=== PATIENT | male | born 1950 | race Caucasian/White ===

== ENCOUNTER 2017-05-17 17:23 | Emergency (ER) | payer MEDICARE ==
[~2017-05-17] VITALS: Ht 180.3 cm; Wt 78.6 kg
[~2017-05-17 17:23] MED LIST: ACET1TAB39 PO; CARI350T PO
[2017-05-17 18:02] VITALS: BP 129/72
== END 2017-05-17 18:50 | disposition left against medical advice (07) ==
LOC: ED 18:44
DX: Z53.21 Procedure and treatment not carried out due to patient leaving prior to being seen by health care provider (principal)

== ENCOUNTER 2018-12-10 09:32 | Emergency (ER) | payer MEDICARE ==
[~2018-12-10] VITALS: Ht 180.3 cm; Wt 77.2 kg
[2018-12-10 09:43] VITALS: BP 123/67
== END 2018-12-10 10:40 | disposition home or self-care (01) ==
LOC: ED 10:34
DX: M25.561 Pain in right knee (principal); M25.562 Pain in left knee; G89.29 Other chronic pain; M51.36 Other intervertebral disc degeneration, lumbar region; Z76.0 Encounter for issue of repeat prescription; J44.9 Chronic obstructive pulmonary disease, unspecified; M19.90 Unspecified osteoarthritis, unspecified site; F17.200 Nicotine dependence, unspecified, uncomplicated; Z90.49 Acquired absence of other specified parts of digestive tract
CPT/HCPCS: 99283

== ENCOUNTER 2019-03-30 22:48 | Emergency (ER) | payer MEDICARE ==
[~2019-03-30] VITALS: Ht 180.3 cm; Wt 81.8 kg
[2019-03-30 22:54] VITALS: BP 146/84
[2019-03-30] MEDS ORDERED: DIPHENHYDRAMINE 25 MG CAPSULE ONE (23:17)
[2019-03-30] MEDS ORDERED: DIPHENHYDRAMINE 25 MG CAPSULE PO ONE (23:30)
== END 2019-03-31 00:24 | disposition home or self-care (01) ==
LOC: ED 03-31 00:18
DX: B86 Scabies (principal); J44.9 Chronic obstructive pulmonary disease, unspecified; M81.0 Age-related osteoporosis without current pathological fracture; Z72.89 Other problems related to lifestyle; Z59.0 Homelessness
CPT/HCPCS: 71046; 99283; Q0163

== ENCOUNTER 2019-10-16 14:08 | Emergency (ER) | payer MEDICARE, MEDICAID ==
[~2019-10-16] VITALS: Ht 180.3 cm; Wt 76.9 kg
[~2019-10-16 14:08] MED LIST changes: +Sulfameth./Trimethoprim Ds PO
[2019-10-16 14:11] VITALS: BP 120/72
[2019-10-16] MEDS ORDERED: SULFAMETH./TRIMETHOPRIM DS 800MG/160MG TABLET ONE (14:32)
--- NOTE | 2019-10-16 14:43 | NUR ---
PT PROVIDED WITH INFORMATION ON CARE CHEST. ALL QUESTIONS ANSWERED. DENIES ANY FURTHER NEEDS OR CONCERNS. DISCHARGED WITHOUT ISSUE.
[2019-10-16] MEDS ORDERED: SULFAMETH./TRIMETHOPRIM DS 800MG/160MG TABLET PO ONE (15:00)
== END 2019-10-16 14:45 | disposition home or self-care (01) ==
LOC: ED 14:35
DX: L03.012 Cellulitis of left finger (principal); J44.9 Chronic obstructive pulmonary disease, unspecified; F17.200 Nicotine dependence, unspecified, uncomplicated
CPT/HCPCS: 99283

== ENCOUNTER 2019-10-20 13:36 | Emergency (ER) | payer MEDICARE, MEDICAID ==
[~2019-10-20] VITALS: Ht 180.3 cm; Wt 74.6 kg
[2019-10-20 13:41] VITALS: BP 120/73
[2019-10-20] MEDS ORDERED: SULFAMETH./TRIMETHOPRIM DS 800MG/160MG TABLET PO ONE (14:30)
== END 2019-10-20 15:22 | disposition home or self-care (01) ==
LOC: ED 15:15
DX: L03.012 Cellulitis of left finger (principal); J44.9 Chronic obstructive pulmonary disease, unspecified; F17.200 Nicotine dependence, unspecified, uncomplicated; Z90.49 Acquired absence of other specified parts of digestive tract
CPT/HCPCS: 99283

== ENCOUNTER 2019-10-21 20:32 | Emergency (ER) | payer MEDICARE, MEDICAID ==
[~2019-10-21] VITALS: Ht 180.3 cm; Wt 74.4 kg
[2019-10-21 20:36] VITALS: BP 128/63
[2019-10-21 21:22] LABS: BASOPHILS # (AUTO) 0.07 x10^3/uL (0-0.1); BASOPHILS % (AUTO) 1 % (0-1); EOSINOPHILS # (AUTO) 0.49 x10^3/uL (0-0.4); EOSINOPHILS % (AUTO) 6 % (1-7); LYMPHOCYTES # (AUTO) 2.12 x10^3/uL (1-3.4); LYMPHOCYTES % (AUTO) 24 % (22-44); MD NO; MEAN CORPUSCULAR HEMOGLOBIN 31.1 pg (27.5-34.5); MEAN CORPUSCULAR HGB CONC 33.1 g/dL (33.2-36.2); MEAN CORPUSCULAR VOLUME 93.9 fL (81-97); MONOCYTES # (AUTO) 0.63 x10^3/uL (0.2-0.8); MONOCYTES % (AUTO) 7 % (2-9); NEUTROPHILS # (AUTO) 5.59 x10^3/uL (1.8-6.8); NEUTROPHILS % (AUTO) 63 % (42-75); PLATELET COUNT 243 x10^3/uL (130-400); RED BLOOD COUNT 4.44 x10^6/uL (4.38-5.82); RED CELL DISTRIBUTION WIDTH 14.9 % (9.4-14.8)
[2019-10-21 21:30] LABS: ALBUMIN 3.3 g/dL (3.4-5.0); ANION GAP 4 mmol/L (5-15); CALCIUM 9.1 mg/dL (8.5-10.1); CHLORIDE 107 mmol/L (98-107); CREATININE 0.88 mg/dL (0.7-1.3)
[2019-10-21] MEDS ORDERED: CEPHALEXIN 500 MG CAPSULE PO ONE (22:00)
== END 2019-10-21 22:31 | disposition home or self-care (01) ==
LOC: ED 21:53
DX: L03.012 Cellulitis of left finger (principal); J44.9 Chronic obstructive pulmonary disease, unspecified; Z90.49 Acquired absence of other specified parts of digestive tract
CPT/HCPCS: 36415; 80048; 82040; 85025; 99284

== ENCOUNTER 2019-10-29 22:29 | Emergency (ER) | payer MEDICARE, MEDICAID ==
[~2019-10-29] VITALS: Ht 180.3 cm; Wt 76.2 kg
[2019-10-29 22:34] VITALS: BP 118/79
[2019-10-29 23:29] LABS: BASOPHILS # (AUTO) 0.05 x10^3/uL (0-0.1); BASOPHILS % (AUTO) 1 % (0-1); EOSINOPHILS # (AUTO) 0.22 x10^3/uL (0-0.4); EOSINOPHILS % (AUTO) 3 % (1-7); LYMPHOCYTES # (AUTO) 1.98 x10^3/uL (1-3.4); LYMPHOCYTES % (AUTO) 24 % (22-44); MD NO; MEAN CORPUSCULAR HGB CONC 32.9 g/dL (33.2-36.2); MEAN CORPUSCULAR VOLUME 94.3 fL (81-97); MONOCYTES # (AUTO) 0.48 x10^3/uL (0.2-0.8); MONOCYTES % (AUTO) 6 % (2-9); NEUTROPHILS # (AUTO) 5.64 x10^3/uL (1.8-6.8); NEUTROPHILS % (AUTO) 67 % (42-75); PLATELET COUNT 276 x10^3/uL (130-400); RED BLOOD COUNT 4.41 x10^6/uL (4.38-5.82); RED CELL DISTRIBUTION WIDTH 14.9 % (9.4-14.8)
[2019-10-29 23:37] LABS: ALBUMIN 3.4 g/dL (3.4-5.0); ANION GAP 3 mmol/L (5-15); CALCIUM 8.4 mg/dL (8.5-10.1); CHLORIDE 105 mmol/L (98-107); CREATININE 0.99 mg/dL (0.7-1.3)
[2019-10-29 23:41] LABS: TROPONIN I < 0.015 ng/mL (0.000-0.045)
--- NOTE | 2019-10-30 01:05 | NUR ---
RELIEF RN: CALLED CT, PT READY FOR TRANSPORT. PT ALSO REQUESTING DINNER, MADE PT AWARE OF PENDING TESTS.
[2019-10-30] MEDS ORDERED: OMNIPAQUE 350 MG/ML, 75ML BOTTLE ONE (01:23)
[2019-10-30] MEDS ORDERED: HYDROcodone/APAP 5/325 TABLET ONE (01:37)
[2019-10-30] MEDS ORDERED: HYDROcodone/APAP 5/325 TABLET PO ONE (02:00)
== END 2019-10-30 03:37 | disposition home or self-care (01) ==
LOC: ED 23:09
DX: M54.6 Pain in thoracic spine (principal); L03.313 Cellulitis of chest wall; R06.02 Shortness of breath; J44.9 Chronic obstructive pulmonary disease, unspecified; R07.9 Chest pain, unspecified; R94.31 Abnormal electrocardiogram [ECG] [EKG]; Z90.49 Acquired absence of other specified parts of digestive tract; Z95.0 Presence of cardiac pacemaker
CPT/HCPCS: 36415; 71046; 71275; 80048; 82040; 83880; 84484; 85025; 85379; 93005; 99285; Q9967

== ENCOUNTER 2019-11-09 18:48 | Emergency (ER) | payer MEDICARE, MEDICAID ==
[~2019-11-09] VITALS: Ht 180.3 cm; Wt 77.6 kg
--- NOTE | 2019-11-09 19:05 | NUR ---
TASK RN: PT AMBULATED BACK TO ROOM WITH A SMOOTH AND STEADY GAIT, CHANGED INTO GOWN, RESTING IN GURNEY. FIRST CONTACT WITH PT: PT REPORTS SOB X2DAYS, BREATHING IS MILDLY LABORED WITH ACTIVITY, EASES WITH RESTING. PT DENIES PASSING OUT, LEG SWELLING, CONSTANT SOB, DIZZINESS. PT STATES THAT HIS "PACER ALSO FEELS LIKE ITS STICKING OUT MORE." DENIES ANY PALPATIONS, RACING HEART FEELING OR CP. PT APPEARS COMFORTABLE IN [place], BREATHING UNLABORED, CLEAR/DIMISHED LUNG SOUNDS. PT PLACED ON SPO2/BP/ECG MONITORING. NSR ON MONITOR IN THE 80S-90S.
--- NOTE | 2019-11-09 19:08 | NUR ---
TASK RN: LALO ELLER AT BS FOR EVAL AND POC
[2019-11-09 19:32] LABS: BASOPHILS # (AUTO) 0.07 x10^3/uL (0-0.1); BASOPHILS % (AUTO) 1 % (0-1); EOSINOPHILS % (AUTO) 3 % (1-7); LYMPHOCYTES # (AUTO) 2.09 x10^3/uL (1-3.4); LYMPHOCYTES % (AUTO) 31 % (22-44); MD NO; MEAN CORPUSCULAR HEMOGLOBIN 31.1 pg (27.5-34.5); MEAN CORPUSCULAR HGB CONC 32.9 g/dL (33.2-36.2); MEAN CORPUSCULAR VOLUME 94.4 fL (81-97); MEAN PLATELET VOLUME 7.9 fL (7.4-10.4); MONOCYTES % (AUTO) 9 % (2-9); NEUTROPHILS % (AUTO) 56 % (42-75); PLATELET COUNT 212 x10^3/uL (130-400); RED CELL DISTRIBUTION WIDTH 15.2 % (9.4-14.8)
[2019-11-09 19:34] LABS: ALANINE AMINOTRANSFERASE 22 U/L (12-78); ALBUMIN 3.3 g/dL (3.4-5.0); ANION GAP 6 mmol/L (5-15); CALCIUM 8.2 mg/dL (8.5-10.1); CHLORIDE 110 mmol/L (98-107); CREATININE 1.06 mg/dL (0.7-1.3)
[2019-11-09 19:39] LABS: ALKALINE PHOSPHATASE 134 U/L (45-117); BILIRUBIN,TOTAL 0.2 mg/dL (0.2-1.0); TOTAL PROTEIN 7.1 g/dL (6.4-8.2); TROPONIN I < 0.015 ng/mL (0.000-0.045)
[2019-11-09 20:02] VITALS: BP 105/61
--- NOTE | 2019-11-09 20:03 | NUR ---
RADIOLOGY CALLED FOR PENDING CXR FRM 1909. PER PT HER REPORTS HE WAS TAKEN A WHILE AGO FOR IMAGES.
== END 2019-11-09 20:35 | disposition home or self-care (01) ==
LOC: ED 20:25
DX: R06.00 Dyspnea, unspecified (principal); R07.9 Chest pain, unspecified; J44.9 Chronic obstructive pulmonary disease, unspecified; Z90.49 Acquired absence of other specified parts of digestive tract; Z95.0 Presence of cardiac pacemaker
CPT/HCPCS: 36415; 71046; 80053; 83880; 84484; 85025; 93005; 99285

== ENCOUNTER 2019-11-12 19:10 | Emergency (ER) | payer MEDICARE, MEDICAID ==
[~2019-11-12] VITALS: Ht 180.3 cm; Wt 78.2 kg
[2019-11-12 19:18] VITALS: BP 128/76
--- NOTE | 2019-11-12 20:23 | NUR ---
STICH-LIKE FOREIGN BODY EMERGING FROM PACEMAKER SUTURE AREA. PACEMAKER INSERTED ABOUT 2 MONTHS AGO.
--- NOTE | 2019-11-12 20:25 | NUR ---
SKIN WNL, RESP EVEN & UNLABORED. PT ABLE TO SPEAK IN COMPLETE SENTENCES W/OUT DIFFICULTY. NO COUGH NOTED.
== END 2019-11-12 20:45 | disposition home or self-care (01) ==
LOC: ED 20:39
DX: R06.00 Dyspnea, unspecified (principal); R94.31 Abnormal electrocardiogram [ECG] [EKG]; J44.9 Chronic obstructive pulmonary disease, unspecified; M19.90 Unspecified osteoarthritis, unspecified site; Z90.49 Acquired absence of other specified parts of digestive tract; Z95.0 Presence of cardiac pacemaker; F17.200 Nicotine dependence, unspecified, uncomplicated
CPT/HCPCS: 93005; 99283

== ENCOUNTER 2019-12-05 17:35 | Emergency (ER) | payer MEDICARE, MEDICAID ==
[~2019-12-05] VITALS: Ht 180.3 cm; Wt 75.0 kg
[2019-12-05 17:42] VITALS: BP 128/70
[2019-12-05] MEDS ORDERED: KETOROLAC 30 MG/1 ML ONE (17:49)
--- NOTE | 2019-12-05 17:53 | NUR ---
TORADOL GIVEN FOR PAIN TO BILATERAL KNEES REPORTED BY PT TO BE 10/10. PT SLEEPING INTERMITTENTLY, AROUSABLE TO VOICE. URINAL AT BS PER PT REQUEST, CALL LIGHT WITHIN REACH. PT TO XRAY
[2019-12-05] MEDS ORDERED: KETOROLAC 30 MG/1 ML IM ONE ×2 (18:00)
--- NOTE | 2019-12-05 18:00 | NUR ---
PT TO XRAY.
--- NOTE | 2019-12-05 18:22 | NUR ---
XRAYS RESULTED, PT FOR RECHECK.
--- NOTE | 2019-12-05 18:29 | NUR ---
PT AWOKE FROM SLEEP AGAIN. PT PROVIDED CANE AND AMBULATED IN FIELD AND TO BR. PT ABLE TO AMBULATE, USES CANE SOMETIMES BUT APPEARS TO PREFER WALKING WITHOUT ANY ASSISTIVE DEVICE.
--- NOTE | 2019-12-05 18:53 | NUR ---
REPORT TO PERCY, TRANSFER OF CARE AT THIS TIME.
--- NOTE | 2019-12-05 19:12 | NUR ---
PATIENT RESTING COMFORTABLE IN ROOM, CANE AT BEDSIDE. NAD, AWAITING FOR DISPO
== END 2019-12-05 19:59 | disposition home or self-care (01) ==
LOC: ED 19:32
DX: M25.562 Pain in left knee (principal); M25.561 Pain in right knee; J44.9 Chronic obstructive pulmonary disease, unspecified; Z95.0 Presence of cardiac pacemaker; Z90.49 Acquired absence of other specified parts of digestive tract
CPT/HCPCS: 73564; 96372; 99283; J1885

== ENCOUNTER 2019-12-06 17:41 | Inpatient (IN) | payer MEDICARE, MEDICAID ==
[~2019-12-06] VITALS: Ht 172.7 cm; Wt 77.1 kg
[2019-12-06] MEDS ORDERED: ACETAMINOPHEN 500 MG TABLET ONE (17:58)
[2019-12-06] MEDS ORDERED: SODIUM CHLORIDE 0.9% 1,000 ML IV ONE (18:12)
[2019-12-06] MEDS ORDERED: ACETAMINOPHEN 500 MG TABLET PO ONE (18:30)
[2019-12-06] MEDS ORDERED: CEFTRIAXONE PMX 1GM/50ML 50 ML IVPB ONE (18:30)
[2019-12-06] MEDS ORDERED: AZITHROMYCIN 500 MG in SODIUM CHLORIDE 0.9% 250 ML IV ONE (18:30)
--- NOTE | 2019-12-06 18:33 | NUR ---
PT. ARRIVES BY [facility] WITH C/O AMS. PT. IS A & O X 4 WITH A GCS OF 15. PT. IS INCONTINENT OF STOOL AND HAS SCABIES THROUGHOUT HIS ENTIRE BODY. PT. HAS MULTIPLE BRUISES HEAD TO TOE, VARIED STAGES OF HEALING. REPORTED THAT PT. IS UNSTEADY ON HIS FEET. PT. IS A POOR HISTORIAN. REPORTS TAKING ARTHRITIS MEDICATION. HE DOES HAVE A PACEMAKER PRESENT ON HIS LEFT CHEST. 12 LEAD EKG WAS DONE. IV ACCESS WAS ESTABLISHED IN THE FIELD AND IS PATENT. PT. WAS PLACED ON THE CARDIOPULMONARY MONITOR. SKIN CARE WAS GIVEN. FECES WAS REMOVED FROM THE PT.'S BODY NAVEL TO TOES. PT. REPORTS A COUGH AND IS FEBRILE. LUNGS ARE CTA. CHEST RISE AND FALL IS SYMMETRICAL WITHOUT JVD NOTED. HIS NECK IS MIDLINE. RESPIRATIONS ARE EUPNEIC HOWEVER THE PT. DOES REQUIRE O2 AT 2 LITERS PER NASAL CANNULA TO MAINTAIN HIS SPO2 ABOVE 94%. PT. STATES HE SMOKES A PACK OF CIGARETTES PER DAY. PT. LOWER EXTREMITIES ARE SWOLLEN THE RIGHT GREATER THAN THE LEFT AND THE PT. REPORTS PAIN WITH MOVEMENT HOWEVER HE IS ABLE TO MOVE ALL EXTREMITIES. PT.'S CAP REFILL IS BRISK AND HIS PULSES ARE +2 THROUGHOUT. PT.'S HOB IS ELEVATED GREATER THAN 30 DEGREES AND HIS SIDERAILS ARE UP X 2 WITH THE CALL LIGHT IN PLACE. PT. WAS MEDICATED FOR FEVER ORDERED.
[2019-12-06 18:47] LABS: MEAN CORPUSCULAR HEMOGLOBIN 30.6 pg (27.5-34.5); MEAN CORPUSCULAR HGB CONC 32.5 g/dL (33.2-36.2); MEAN PLATELET VOLUME 8.4 fL (7.4-10.4); PLATELET COUNT 139 x10^3/uL (130-400); RED BLOOD COUNT 4.09 x10^6/uL (4.38-5.82); RED CELL DISTRIBUTION WIDTH 14.5 % (9.4-14.8)
[2019-12-06 18:53] LABS: ALBUMIN 2.9 g/dL (3.4-5.0); ANION GAP 8 mmol/L (5-15); CALCIUM 8.6 mg/dL (8.5-10.1); CHLORIDE 105 mmol/L (98-107); CREATININE 1.02 mg/dL (0.7-1.3)
--- NOTE | 2019-12-06 18:59 | NUR ---
REPORT GIVEN. PT. REMAINS MONITORED. PT. WAS REMINDED TO KEEP THE OXYGEN IN HIS NOSE.
[2019-12-06] MEDS ORDERED: CEFTRIAXONE PMX 1GM/50ML 50 ML ONE (19:07)
[2019-12-06 19:13] LABS: MD YES
[2019-12-06 19:15] LABS: <RBC MORPHOLOGY> NORMAL; BAND#(MANUAL) 0.99 x10^3/uL; BANDS%(MANUAL) 14 % (0-7); MONOS#(MANUAL) 0.14 x10^3/uL (0.3-2.7); MONOS% (MANUAL) 2 % (2-9); SEG#(MANUAL) 5.96 x10^3/uL (1.8-6.8); SEGS% (MANUAL) 84 % (42-75)
[2019-12-06 19:16] LABS: <PLATELET ESTIMATE> ADEQUATE; <PLT MORPHOLOGY> NORMAL PLT MORPH
--- NOTE | 2019-12-06 19:30 | NUR ---
Pt AAOx3 w/ 18ga IV RAC w/ good flush. Pt poor historian, unable to obtain medical history.
[2019-12-06] MEDS ORDERED: PERMETHRIN CRM 5%, 60GM TP SCH (21:00)
[2019-12-06] MEDS ORDERED: ONDANSETRON ODT 4 MG PO PRN (21:00)
[2019-12-06] MEDS ORDERED: BISACODYL 10 MG SUPP PR PRN (21:00)
[2019-12-06] MEDS ORDERED: DOXYCYCLINE 100 MG in DEXTROSE 5% 250 ML IV SCH (21:00)
[2019-12-06] MEDS ORDERED: AZITHROMYCIN 500 MG in SODIUM CHLORIDE 0.9% 250 ML IV SCH (21:00)
[2019-12-06 21:27] LABS: MICROSCOPIC INDICATED
[2019-12-06] MEDS: SODIUM CHLORIDE 0.9% 1,000 ML IV SCH (22:18)
[2019-12-06] MEDS: ACETAMINOPHEN 325 MG TABLET PO PRN (22:19)
[2019-12-06] MEDS: HEPARIN 5,000 UNITS/ML, 1ML SQ SCH (22:19)
[2019-12-06 22:37] VITALS: BP 105/66
[2019-12-07 01:59] VITALS: BP 91/61
[2019-12-07] MEDS: HEPARIN 5,000 UNITS/ML, 1ML SQ SCH ×3 (05:00→21:08)
[2019-12-07 06:20] LABS: ANION GAP 6 mmol/L (5-15); CALCIUM 8.2 mg/dL (8.5-10.1); CHLORIDE 109 mmol/L (98-107); CREATININE 0.79 mg/dL (0.7-1.3)
[2019-12-07 07:08] VITALS: BP 91/63
[2019-12-07 07:23] LABS: MD YES; MEAN CORPUSCULAR HGB CONC 32.9 g/dL (33.2-36.2); MEAN PLATELET VOLUME 8.8 fL (7.4-10.4); PLATELET COUNT 88 x10^3/uL (130-400); RED BLOOD COUNT 3.82 x10^6/uL (4.38-5.82); RED CELL DISTRIBUTION WIDTH 14.4 % (9.4-14.8)
[2019-12-07 07:25] LABS: BAND#(MANUAL) 0.56 x10^3/uL; BANDS%(MANUAL) 14 % (0-7); LYMPH#(MANUAL) 0.24 x10^3/uL (1-3.4); LYMPHS% (MANUAL) 6 % (22-44); METAMYELOCYTES# (MANUAL) 0.16 x10^3/uL (0-0); METAMYELOCYTES% (MANUAL) 4 % (0-1); MONOS#(MANUAL) 0.28 x10^3/uL (0.3-2.7); MONOS% (MANUAL) 7 % (2-9); SEG#(MANUAL) 2.76 x10^3/uL (1.8-6.8); SEGS% (MANUAL) 69 % (42-75)
[2019-12-07 07:26] LABS: <PLATELET ESTIMATE> DECREASED; <PLT MORPHOLOGY> NORMAL PLT MORPH; <RBC MORPHOLOGY> NORMAL
[2019-12-07] MEDS ORDERED: VANCOMYCIN PER PHARMACY MC PRN (07:30)
[2019-12-07] MEDS: SODIUM CHLORIDE 0.9% 1,000 ML IV SCH (08:21)
[2019-12-07] MEDS: ACETAMINOPHEN 325 MG TABLET PO PRN ×3 (08:22→19:34)
[2019-12-07] MEDS: SENNA/DOCUSATE TABLET PO SCH (08:22)
[2019-12-07 08:28] VITALS: BP 98/63
[2019-12-07] MEDS ORDERED: PHARMACOKINETIC CONSULTATION MC ONE (08:30)
[2019-12-07] MEDS ORDERED: PHARMACOKINETIC MONITORING MC PRN (08:30)
[2019-12-07] MEDS ORDERED: VANCOMYCIN 1,800 MG in SODIUM CHLORIDE 0.9% 250 ML IV ONE (08:45)
[2019-12-07 13:50] VITALS: BP 95/55
[2019-12-07 18:35] VITALS: BP 95/60
[2019-12-07] MEDS ORDERED: CEFTRIAXONE PMX 1GM/50ML 50 ML IV SCH (19:00)
[2019-12-08] VITALS (9 sets, daily range): BP systolic 81–102; BP diastolic 49–65
[2019-12-08] MEDS: ACETAMINOPHEN 325 MG TABLET PO PRN (00:32)
[2019-12-08] MEDS: ALBUTEROL-IPRATROPIUM MDI INH INH PRN (01:13)
[2019-12-08] MEDS: SODIUM CHLORIDE 0.9% 1,000 ML IV SCH ×2 (01:14→13:00)
[2019-12-08] MEDS: APAP/CODEINE 300/60MG TABLET PO PRN ×2 (01:57→17:38)
[2019-12-08] MEDS: VANCOMYCIN 1,500 MG in SODIUM CHLORIDE 0.9% 250 ML IV SCH ×2 (04:01→22:05)
[2019-12-08] MEDS: HEPARIN 5,000 UNITS/ML, 1ML SQ SCH ×3 (04:02→22:06)
[2019-12-08 06:52] LABS: MEAN CORPUSCULAR HEMOGLOBIN 30.9 pg (27.5-34.5); MEAN CORPUSCULAR HGB CONC 32.1 g/dL (33.2-36.2); MEAN PLATELET VOLUME 9.3 fL (7.4-10.4); PLATELET COUNT 76 x10^3/uL (130-400); RED BLOOD COUNT 3.85 x10^6/uL (4.38-5.82); RED CELL DISTRIBUTION WIDTH 14.9 % (9.4-14.8)
[2019-12-08 07:05] LABS: ALANINE AMINOTRANSFERASE 32 U/L (12-78); ALBUMIN 1.7 g/dL (3.4-5.0); ANION GAP 5 mmol/L (5-15); CALCIUM 8.2 mg/dL (8.5-10.1); CHLORIDE 111 mmol/L (98-107)
[2019-12-08 07:08] LABS: ALKALINE PHOSPHATASE 100 U/L (45-117); BILIRUBIN,TOTAL 0.4 mg/dL (0.2-1.0); CREATININE 0.83 mg/dL (0.7-1.3); TOTAL PROTEIN 4.7 g/dL (6.4-8.2)
[2019-12-08 07:32] LABS: MD YES
[2019-12-08 07:37] LABS: LYMPH#(MANUAL) 0.19 x10^3/uL (1-3.4); LYMPHS% (MANUAL) 4 % (22-44); MONOS#(MANUAL) 0.29 x10^3/uL (0.3-2.7); MONOS% (MANUAL) 6 % (2-9)
[2019-12-08 07:39] LABS: BAND#(MANUAL) 1.06 x10^3/uL; BANDS%(MANUAL) 22 % (0-7); SEG#(MANUAL) 3.26 x10^3/uL (1.8-6.8); SEGS% (MANUAL) 68 % (42-75)
[2019-12-08 07:40] LABS: <RBC MORPHOLOGY> NORMAL
[2019-12-08 07:41] LABS: <PLATELET ESTIMATE> DECREASED; LARGE PLATELETS 1+
[2019-12-08] MEDS: SENNA/DOCUSATE TABLET PO SCH (09:00)
[2019-12-08] MEDS ORDERED: CEFTRIAXONE PMX 2GM/50ML 50 ML IV SCH (15:30)
[2019-12-09 01:12] VITALS: BP 90/59
[2019-12-09] MEDS: ALBUTEROL-IPRATROPIUM MDI INH INH PRN ×2 (01:50→09:01)
[2019-12-09] MEDS: APAP/CODEINE 300/60MG TABLET PO PRN ×3 (02:07→21:59)
[2019-12-09 05:48] LABS: MEAN CORPUSCULAR HEMOGLOBIN 30.8 pg (27.5-34.5); MEAN CORPUSCULAR HGB CONC 32.4 g/dL (33.2-36.2); MEAN PLATELET VOLUME 10.2 fL (7.4-10.4); PLATELET COUNT 75 x10^3/uL (130-400); RED BLOOD COUNT 3.92 x10^6/uL (4.38-5.82); RED CELL DISTRIBUTION WIDTH 14.8 % (9.4-14.8)
[2019-12-09 05:50] LABS: ANION GAP 4 mmol/L (5-15); CALCIUM 8.3 mg/dL (8.5-10.1); CHLORIDE 110 mmol/L (98-107)
[2019-12-09] MEDS: HEPARIN 5,000 UNITS/ML, 1ML SQ SCH (05:51)
[2019-12-09 05:52] LABS: CREATININE 0.78 mg/dL (0.7-1.3)
[2019-12-09 05:59] LABS: MD YES
[2019-12-09 06:02] LABS: <PLATELET ESTIMATE> DECREASED; <PLT MORPHOLOGY> NORMAL PLT MORPH; <RBC MORPHOLOGY> NORMAL; BANDS%(MANUAL) 3 % (0-7); LYMPH#(MANUAL) 0.59 x10^3/uL (1-3.4); LYMPHS% (MANUAL) 9 % (22-44); MONOS% (MANUAL) 6 % (2-9); SEG#(MANUAL) 5.41 x10^3/uL (1.8-6.8); SEGS% (MANUAL) 82 % (42-75)
[2019-12-09] MEDS ORDERED: CEFTAROLINE 600 MG in SODIUM CHLORIDE 0.9% 100 ML IV SCH (07:30)
[2019-12-09] MEDS ORDERED: POTASSIUM PHOSPHATE 44 MEQ in SODIUM CHLORIDE 0.9% 500 ML IV ONE (07:30)
[2019-12-09] MEDS ORDERED: DAPTOMYCIN 500 MG in SODIUM CHLORIDE 0.9% 100 ML IVPB SCH (07:30)
[2019-12-09 08:13] LABS: CREATINE KINASE, TOTAL 59 U/L (39-308)
[2019-12-09 08:37] LABS: C-REACTIVE PROTEIN, QUANT > 19.00 mg/dL (0.02-0.49)
[2019-12-09 08:40] VITALS: BP 114/75
[2019-12-09] MEDS: SENNA/DOCUSATE TABLET PO SCH (08:57)
[2019-12-09 09:17] LABS: HCT (SEDRATE) 37.2 % (39.2-51.8)
[2019-12-09] MEDS: FUROSEMIDE 20 MG/2 ML IV SCH (10:19)
[2019-12-09] MEDS: methylPREDNISolone SOD SUCC 40 MG/ML IV SCH ×2 (12:01→20:15)
[2019-12-09 14:45] VITALS: BP 101/65
[2019-12-09] MEDS: CEFTAROLINE 600 MG in SODIUM CHLORIDE 0.9% 100 ML IV SCH (17:12)
[2019-12-09 19:33] VITALS: BP 105/64
[2019-12-10 00:53] VITALS: BP 114/68
[2019-12-10] MEDS: CEFTAROLINE 600 MG in SODIUM CHLORIDE 0.9% 100 ML IV SCH ×3 (00:53→17:05)
[2019-12-10] MEDS: methylPREDNISolone SOD SUCC 40 MG/ML IV SCH ×3 (04:15→21:10)
[2019-12-10 05:50] LABS: MEAN CORPUSCULAR HEMOGLOBIN 30.5 pg (27.5-34.5); MEAN CORPUSCULAR HGB CONC 32.1 g/dL (33.2-36.2); MEAN PLATELET VOLUME 9.5 fL (7.4-10.4); PLATELET COUNT 77 x10^3/uL (130-400); RED CELL DISTRIBUTION WIDTH 15.3 % (9.4-14.8)
[2019-12-10 05:53] LABS: ANION GAP 7 mmol/L (5-15); CALCIUM 7.5 mg/dL (8.5-10.1); CHLORIDE 110 mmol/L (98-107)
[2019-12-10 05:54] LABS: CREATININE 0.73 mg/dL (0.7-1.3)
[2019-12-10 06:07] LABS: MD YES
[2019-12-10 06:09] LABS: BAND#(MANUAL) 0.06 x10^3/uL; BANDS%(MANUAL) 1 % (0-7); LYMPH#(MANUAL) 1.03 x10^3/uL (1-3.4); LYMPHS% (MANUAL) 18 % (22-44); MONOS#(MANUAL) 0.34 x10^3/uL (0.3-2.7); MONOS% (MANUAL) 6 % (2-9); SEG#(MANUAL) 4.28 x10^3/uL (1.8-6.8); SEGS% (MANUAL) 75 % (42-75)
[2019-12-10 06:11] LABS: <PLATELET ESTIMATE> DECREASED; <PLT MORPHOLOGY> NORMAL PLT MORPH; <RBC MORPHOLOGY> NORMAL
[2019-12-10 07:21] VITALS: BP 127/79
[2019-12-10] MEDS: SENNA/DOCUSATE TABLET PO SCH (09:00)
[2019-12-10] MEDS: FUROSEMIDE 20 MG/2 ML IV SCH (09:08)
[2019-12-10] MEDS: INSULIN LISPRO 100 UNITS/ML, PEN SQ-INSULIN SCH ×4 (09:09→21:11)
[2019-12-10] MEDS: APAP/CODEINE 300/60MG TABLET PO PRN (10:58)
[2019-12-10 14:50] VITALS: BP 94/61
[2019-12-10 20:59] VITALS: BP 96/61
[2019-12-11 00:45] VITALS: BP 103/66
[2019-12-11 01:37] VITALS: BP 123/78
[2019-12-11] MEDS: CEFTAROLINE 600 MG in SODIUM CHLORIDE 0.9% 100 ML IV SCH ×3 (02:05→19:52)
[2019-12-11] MEDS: methylPREDNISolone SOD SUCC 40 MG/ML IV SCH (05:16)
[2019-12-11 06:43] LABS: MEAN CORPUSCULAR HEMOGLOBIN 30.8 pg (27.5-34.5); MEAN CORPUSCULAR HGB CONC 32.8 g/dL (33.2-36.2); MEAN PLATELET VOLUME 9.6 fL (7.4-10.4); PLATELET COUNT 107 x10^3/uL (130-400); RED BLOOD COUNT 4.07 x10^6/uL (4.38-5.82)
[2019-12-11 07:01] LABS: ANION GAP 3 mmol/L (5-15); CALCIUM 7.8 mg/dL (8.5-10.1); CHLORIDE 112 mmol/L (98-107); CREATININE 0.61 mg/dL (0.7-1.3)
[2019-12-11 07:30] LABS: BASOPHILS # (AUTO) 0.01 x10^3/uL (0-0.1); BASOPHILS % (AUTO) 0 % (0-1); EOSINOPHILS # (AUTO) 0.01 x10^3/uL (0-0.4); EOSINOPHILS % (AUTO) 0 % (1-7); LYMPHOCYTES # (AUTO) 0.67 x10^3/uL (1-3.4); LYMPHOCYTES % (AUTO) 12 % (22-44); MD SCAN; MONOCYTES # (AUTO) 0.17 x10^3/uL (0.2-0.8); MONOCYTES % (AUTO) 3 % (2-9); NEUTROPHILS # (AUTO) 4.78 x10^3/uL (1.8-6.8); NEUTROPHILS % (AUTO) 85 % (42-75)
[2019-12-11 08:23] VITALS: BP 121/77
[2019-12-11] MEDS: INSULIN LISPRO 100 UNITS/ML, PEN SQ-INSULIN SCH ×4 (08:44→22:06)
[2019-12-11] MEDS: GUAIFENESIN ER 600 MG TABLET PO SCH ×2 (10:28→22:06)
[2019-12-11] MEDS: DAPTOMYCIN 480 MG in SODIUM CHLORIDE 0.9% 100 ML IVPB SCH (10:29)
[2019-12-11] MEDS: SENNA/DOCUSATE TABLET PO SCH (10:29)
[2019-12-11 12:01] VITALS: BP 113/67
[2019-12-11] MEDS ORDERED: MIDAZOLAM 1 MG/ML, 5ML ONE (14:50)
[2019-12-11] MEDS ORDERED: FENTANYL PF 100 MCG/2ML ONE (14:50)
[2019-12-11] MEDS ORDERED: LIDOCAINE 2%, 20ML ONE (14:51)
[2019-12-11] MEDS ORDERED: VANCOMYCIN PMX 1GM/200ML 200 ML ONE (14:51)
[2019-12-11] MEDS ORDERED: VANCOMYCIN 500 MG ONE (14:51)
[2019-12-11 16:35] VITALS: BP 126/70
[2019-12-11 19:39] VITALS: BP 112/63
[2019-12-11] MEDS: APAP/CODEINE 300/60MG TABLET PO PRN (22:05)
[2019-12-12 01:28] VITALS: BP 116/71
[2019-12-12] MEDS: CEFTAROLINE 600 MG in SODIUM CHLORIDE 0.9% 100 ML IV SCH ×3 (03:32→23:44)
[2019-12-12 06:13] LABS: CHLORIDE 114 mmol/L (98-107)
[2019-12-12 06:27] LABS: ANION GAP 5 mmol/L (5-15); CREATININE 0.63 mg/dL (0.7-1.3)
[2019-12-12] MEDS: INSULIN LISPRO 100 UNITS/ML, PEN SQ-INSULIN SCH ×4 (07:34→21:00)
[2019-12-12] MEDS: SENNA/DOCUSATE TABLET PO SCH (08:22)
[2019-12-12] MEDS: GUAIFENESIN ER 600 MG TABLET PO SCH ×2 (08:22→23:44)
[2019-12-12 08:33] VITALS: BP 137/62
[2019-12-12] MEDS ORDERED: methylPREDNISolone SOD SUCC 40 MG/ML IV SCH (09:00)
[2019-12-12] MEDS: DAPTOMYCIN 480 MG in SODIUM CHLORIDE 0.9% 100 ML IVPB SCH (11:00)
[2019-12-12 12:47] VITALS: BP 104/61
[2019-12-12 19:36] VITALS: BP 139/78
[2019-12-12] MEDS: APAP/CODEINE 300/60MG TABLET PO PRN (23:44)
[2019-12-13 01:52] VITALS: BP 130/78
[2019-12-13] MEDS: CEFTAROLINE 600 MG in SODIUM CHLORIDE 0.9% 100 ML IV SCH ×3 (04:06→21:38)
[2019-12-13] MEDS: APAP/CODEINE 300/60MG TABLET PO PRN ×2 (04:06→10:11)
[2019-12-13 06:31] LABS: BASOPHILS # (AUTO) 0.01 x10^3/uL (0-0.1); BASOPHILS % (AUTO) 0 % (0-1); EOSINOPHILS # (AUTO) 0.07 x10^3/uL (0-0.4); EOSINOPHILS % (AUTO) 1 % (1-7); LYMPHOCYTES # (AUTO) 1.14 x10^3/uL (1-3.4); LYMPHOCYTES % (AUTO) 17 % (22-44); MD NO; MEAN CORPUSCULAR HEMOGLOBIN 30.9 pg (27.5-34.5); MEAN CORPUSCULAR HGB CONC 33.1 g/dL (33.2-36.2); MEAN PLATELET VOLUME 9.4 fL (7.4-10.4); MONOCYTES # (AUTO) 0.09 x10^3/uL (0.2-0.8); MONOCYTES % (AUTO) 1 % (2-9); NEUTROPHILS # (AUTO) 5.53 x10^3/uL (1.8-6.8); NEUTROPHILS % (AUTO) 81 % (42-75); PLATELET COUNT 168 x10^3/uL (130-400); RED CELL DISTRIBUTION WIDTH 14.9 % (9.4-14.8)
[2019-12-13 06:37] LABS: CHLORIDE 113 mmol/L (98-107)
[2019-12-13 06:55] LABS: ANION GAP 4 mmol/L (5-15); CALCIUM 6.7 mg/dL (8.5-10.1); CREATININE 0.61 mg/dL (0.7-1.3)
[2019-12-13] MEDS: INSULIN LISPRO 100 UNITS/ML, PEN SQ-INSULIN SCH ×4 (07:00→21:00)
[2019-12-13 07:10] VITALS: BP 97/57
[2019-12-13] MEDS ORDERED: CALCIUM GLUCONATE 9.2 MEQ in SODIUM CHLORIDE 0.9% 100 ML IV ONE (08:00)
[2019-12-13] MEDS: GUAIFENESIN ER 600 MG TABLET PO SCH ×2 (08:52→21:36)
[2019-12-13] MEDS: ENOXAPARIN 40 MG/0.4 ML SQ SCH (08:53)
[2019-12-13] MEDS: SENNA/DOCUSATE TABLET PO SCH (08:53)
[2019-12-13 10:18] VITALS: BP 100/56
[2019-12-13] MEDS: DAPTOMYCIN 480 MG in SODIUM CHLORIDE 0.9% 100 ML IVPB SCH (11:30)
[2019-12-13 13:19] VITALS: BP 101/52
[2019-12-13] MEDS ORDERED: MORPHINE SULFATE 4 MG/ML, 1ML IVPush PRN (16:30)
[2019-12-13] MEDS ORDERED: MORPHINE SULFATE 4 MG/ML, 1ML ONE (16:31)
[2019-12-13 18:52] VITALS: BP 134/80
[2019-12-14 01:15] VITALS: BP 143/79
[2019-12-14] MEDS: APAP/CODEINE 300/60MG TABLET PO PRN ×3 (01:58→14:40)
[2019-12-14] MEDS: CEFTAROLINE 600 MG in SODIUM CHLORIDE 0.9% 100 ML IV SCH ×3 (05:30→21:22)
[2019-12-14] MEDS: INSULIN LISPRO 100 UNITS/ML, PEN SQ-INSULIN SCH ×4 (07:00→21:00)
[2019-12-14 07:45] VITALS: BP 137/72
[2019-12-14] MEDS: GUAIFENESIN ER 600 MG TABLET PO SCH ×2 (08:05→21:22)
[2019-12-14] MEDS: ENOXAPARIN 40 MG/0.4 ML SQ SCH (08:05)
[2019-12-14] MEDS: SENNA/DOCUSATE TABLET PO SCH (08:12)
[2019-12-14] MEDS ORDERED: MORPHINE SULFATE 4 MG/ML, 1ML ONE (10:43)
[2019-12-14] MEDS: MORPHINE SULFATE 4 MG/ML, 1ML IVPush PRN (10:47)
[2019-12-14] MEDS ORDERED: CEFTAROLINE 600 MG in SODIUM CHLORIDE 0.9% 100 ML IV SCH (11:00)
[2019-12-14] MEDS ORDERED: INSU100I11 SQ-INSULIN (12:04)
[2019-12-14] MEDS ORDERED: ACET500T64 PO (12:04)
[2019-12-14] MEDS ORDERED: Albuterol-Ipratropium Mdi INH (12:04)
[2019-12-14] MEDS ORDERED: ONDA4TAB13 PO (12:04)
[2019-12-14] MEDS ORDERED: ENOX40SY4 SQ (12:04)
[2019-12-14 13:05] VITALS: BP 110/69
[2019-12-14] MEDS: POLYETHYLENE GLYCOL 17 GM PACKET PO PRN (18:07)
[2019-12-14 19:02] VITALS: BP 130/76
[2019-12-15] MEDS: APAP/CODEINE 300/60MG TABLET PO PRN ×2 (02:13→09:14)
[2019-12-15 02:37] VITALS: BP 128/77
[2019-12-15] MEDS: CEFTAROLINE 600 MG in SODIUM CHLORIDE 0.9% 100 ML IV SCH (05:31)
[2019-12-15 06:00] LABS: CHLORIDE 107 mmol/L (98-107)
[2019-12-15 06:10] LABS: ALANINE AMINOTRANSFERASE 142 U/L (12-78); ALBUMIN 1.6 g/dL (3.4-5.0); ALKALINE PHOSPHATASE 507 U/L (45-117); ANION GAP 2 mmol/L (5-15); BILIRUBIN,TOTAL 0.8 mg/dL (0.2-1.0); CALCIUM 7.7 mg/dL (8.5-10.1); CREATININE 0.61 mg/dL (0.7-1.3); TOTAL PROTEIN 4.9 g/dL (6.4-8.2)
[2019-12-15] MEDS: INSULIN LISPRO 100 UNITS/ML, PEN SQ-INSULIN SCH ×2 (07:00→11:00)
[2019-12-15] MEDS ORDERED: DAPTOMYCIN 650 MG in SODIUM CHLORIDE 0.9% 100 ML IVPB SCH (07:30)
[2019-12-15 08:15] VITALS: BP 128/76
[2019-12-15] MEDS: GUAIFENESIN ER 600 MG TABLET PO SCH (09:13)
[2019-12-15] MEDS: ENOXAPARIN 40 MG/0.4 ML SQ SCH (09:13)
[2019-12-15] MEDS: SENNA/DOCUSATE TABLET PO SCH (09:14)
[2019-12-15] MEDS: POLYETHYLENE GLYCOL 17 GM PACKET PO PRN (09:14)
[2019-12-15] MEDS: MORPHINE SULFATE 4 MG/ML, 1ML IVPush PRN (11:16)
== END 2019-12-15 11:40 | DRG 260 ==
LOC: ED 18:32 → EDIP 20:04 → 3N 20:54 → 5SO 12-11 15:53
PROVIDERS: ADMIT Internal Medicine; ATTEND Internal Medicine
PROC: 02PA3MZ Removal of Cardiac Lead from Heart, Percutaneous Approach (ICD-10-PCS; principal; 2019-12-11)
PROC: 0JPT0PZ Removal of Cardiac Rhythm Related Device from Trunk Subcutaneous Tissue and Fascia, Open Approach (ICD-10-PCS; 2019-12-11)
PROC: 02HV33Z Insertion of Infusion Device into Superior Vena Cava, Percutaneous Approach (ICD-10-PCS; 2019-12-14)
PROC: B548ZZA Ultrasonography of Superior Vena Cava, Guidance (ICD-10-PCS; 2019-12-14)
DX: T82.7XXA Infection and inflammatory reaction due to other cardiac and vascular devices, implants and grafts, initial encounter (principal); A41.02 Sepsis due to Methicillin resistant Staphylococcus aureus; J18.9 Pneumonia, unspecified organism; E43 Unspecified severe protein-calorie malnutrition; J96.01 Acute respiratory failure with hypoxia; J44.0 Chronic obstructive pulmonary disease with (acute) lower respiratory infection; J44.1 Chronic obstructive pulmonary disease with (acute) exacerbation; B86 Scabies; D63.8 Anemia in other chronic diseases classified elsewhere; D69.6 Thrombocytopenia, unspecified; I49.5 Sick sinus syndrome; M19.90 Unspecified osteoarthritis, unspecified site; R73.9 Hyperglycemia, unspecified; Z20.828 Contact with and (suspected) exposure to other viral communicable diseases; Y83.1 Surgical operation with implant of artificial internal device as the cause of abnormal reaction of the patient, or of later complication, without mention of misadventure at the time of the procedure; D64.9 Anemia, unspecified; T38.0X5A Adverse effect of glucocorticoids and synthetic analogues, initial encounter; F17.210 Nicotine dependence, cigarettes, uncomplicated; Z95.0 Presence of cardiac pacemaker; F03.90 Unspecified dementia, unspecified severity, without behavioral disturbance, psychotic disturbance, mood disturbance, and anxiety; Z59.0 Homelessness; Z90.49 Acquired absence of other specified parts of digestive tract; Z88.0 Allergy status to penicillin; Z68.25 Body mass index [BMI] 25.0-25.9, adult; Z79.899 Other long term (current) drug therapy
CPT/HCPCS: 33235; 36415; 36573; 36600; 71045; 72158; 80048; 80053; 81001; 82040; 82533; 82550; 82803; 82962; 83605; 83735; 84100; 85025; 85651; 86022; 86140; 87040; 87070; 87077; 87147; 87186; 87635; 93005; 93308; 93321; 93325; 93970; 96372; 97162; 99156; 99283; 99285; G0378; J0456; J0610; J0696; J0712; J0878; J1644; J1650; J1885; J2250; J3010; J3370; J7060; C1751; J1815; J1940; J2270; J2920; J7030; J7040; J7050

== ENCOUNTER 2020-03-03 18:17 | Inpatient (IN) | payer MEDICARE, MEDICAID ==
[~2020-03-03] VITALS: Ht 180.3 cm; Wt 69.7 kg
[~2020-03-03 18:17] MED LIST changes: +ACET500T64 PO; +Albuterol-Ipratropium Mdi INH; +ENOX40SY4 SQ; +INSU100I11 SQ-INSULIN; +ONDA4TAB13 PO
[2020-03-03 19:07] LABS: BASOPHILS % (AUTO) 1 % (0-1); EOSINOPHILS % (AUTO) 2 % (1-7); LYMPHOCYTES % (AUTO) 26 % (22-44); MEAN CORPUSCULAR HEMOGLOBIN 29.6 pg (27.5-34.5); MEAN CORPUSCULAR HGB CONC 32.6 g/dL (33.2-36.2); MEAN PLATELET VOLUME 8.4 fL (7.4-10.4); MONOCYTES % (AUTO) 7 % (2-9); NEUTROPHILS % (AUTO) 64 % (42-75); PLATELET COUNT 290 x10^3/uL (130-400); RED BLOOD COUNT 4.98 x10^6/uL (4.38-5.82); RED CELL DISTRIBUTION WIDTH 15.3 % (9.4-14.8)
[2020-03-03 19:15] LABS: ALANINE AMINOTRANSFERASE 37 U/L (12-78); ALBUMIN 3.5 g/dL (3.4-5.0); ANION GAP 6 mmol/L (5-15); CALCIUM 9.7 mg/dL (8.5-10.1); CHLORIDE 111 mmol/L (98-107); CREATININE 1.08 mg/dL (0.7-1.3)
[2020-03-03 19:17] LABS: ALKALINE PHOSPHATASE 231 U/L (45-117); BILIRUBIN,TOTAL 0.4 mg/dL (0.2-1.0); TOTAL PROTEIN 7.5 g/dL (6.4-8.2)
[2020-03-03 19:21] LABS: MD NO
--- NOTE | 2020-03-03 19:55 | NUR ---
Assumed care of pt. A&o x4, answering questions appropriately. States, "my equilibrium has been off for a few days and I keep falling. I'm not dizzy or lightheaded, just off." States falls yesterday and today. (+) head strike today. Denies LOC. Denies thinners. Superficial lac noted to R forearm. Pt also reports diarrhea x4-5 days. This RN instructed pt to let RN know if he has to have BM so we can collect sample, verbalizes understanding. Denies all pain. Denies fever/chills. Bed low, side rails up, call light within reach. Verbalizes understanding of use of call astorga to get OOB
[2020-03-03] MEDS ORDERED: MECLIZINE CHEWABLE 25 MG TAB PO ONE (20:30)
[2020-03-03 21:26] LABS: TROPONIN I < 0.015 ng/mL (0.000-0.045)
[2020-03-03] MEDS ORDERED: POTASSIUM CHLORIDE 10% 40 MEQ/30 ML UDC PO ONE (22:00)
[2020-03-03] MEDS ORDERED: SODIUM CHLORIDE 0.9% 1,000ML IVBOLUS ONE (22:00)
--- NOTE | 2020-03-03 22:00 | NUR ---
Resting comfortably on stretcher. Visible chest rise/fall noted. No s/sx acute distress. Bed low, call astorga within reach
[2020-03-03] MEDS ORDERED: MECLIZINE CHEWABLE 25 MG TAB ONE (22:43)
--- NOTE | 2020-03-03 23:34 | NUR ---
Report given to Thea VASQUEZ
--- NOTE | 2020-03-03 23:35 | NUR ---
Pt reports he does not take any home meds
[2020-03-03 23:47] VITALS: BP 102/69
[2020-03-04] MEDS ORDERED: CARI350T14 PO (00:29)
[2020-03-04] MEDS ORDERED: LIDODERM 5% PATCH TD PRN (01:00)
[2020-03-04] MEDS ORDERED: MECLIZINE 25 MG TABLET PO PRN (01:00)
[2020-03-04] MEDS ORDERED: DOCUSATE 100 MG CAPSULE PO PRN (01:00)
[2020-03-04] MEDS ORDERED: MELATONIN 5 MG TABLET PO PRN (01:00)
[2020-03-04] MEDS: HEPARIN 5,000 UNITS/ML, 1ML SQ SCH ×3 (01:08→16:55)
[2020-03-04 08:30] VITALS: BP 113/74
[2020-03-04] MEDS ORDERED: NICOTINE 21 MG/24 HR PATCH.TD24 TD ONE (11:00)
[2020-03-04 11:39] LABS: CLOSTRIDIUM DIFFICILE ANTIGEN POSITIVE; CLOSTRIDIUM DIFFICILE TOXIN NEGATIVE (Negative)
[2020-03-04] MEDS: ACETAMINOPHEN 325 MG TABLET PO PRN ×2 (11:59→19:56)
[2020-03-04 12:08] VITALS: BP 107/70
[2020-03-04 20:36] LABS: MICROSCOPIC INDICATED
[2020-03-04 20:52] VITALS: BP 95/63
[2020-03-04] MEDS: VANCOMYCIN 50 MG/ML ORAL SUSP PO SCH (20:54)
[2020-03-05] MEDS: HEPARIN 5,000 UNITS/ML, 1ML SQ SCH ×2 (01:36→09:00)
[2020-03-05] MEDS: ACETAMINOPHEN 325 MG TABLET PO PRN ×2 (02:12→12:33)
[2020-03-05] MEDS: VANCOMYCIN 50 MG/ML ORAL SUSP PO SCH ×3 (02:12→14:10)
[2020-03-05 02:16] VITALS: BP 104/69
[2020-03-05 05:42] LABS: ANION GAP 7 mmol/L (5-15); CALCIUM 8.3 mg/dL (8.5-10.1); CHLORIDE 114 mmol/L (98-107); CREATININE 0.74 mg/dL (0.7-1.3)
[2020-03-05 05:43] LABS: BASOPHILS % (AUTO) 1 % (0-1); EOSINOPHILS % (AUTO) 3 % (1-7); LYMPHOCYTES % (AUTO) 30 % (22-44); MEAN CORPUSCULAR HEMOGLOBIN 29.3 pg (27.5-34.5); MEAN CORPUSCULAR HGB CONC 32.2 g/dL (33.2-36.2); MEAN PLATELET VOLUME 8.8 fL (7.4-10.4); MONOCYTES % (AUTO) 9 % (2-9); NEUTROPHILS % (AUTO) 57 % (42-75); PLATELET COUNT 202 x10^3/uL (130-400); RED BLOOD COUNT 4.11 x10^6/uL (4.38-5.82); RED CELL DISTRIBUTION WIDTH 15.4 % (9.4-14.8)
[2020-03-05 05:55] LABS: MD NO
[2020-03-05 08:56] VITALS: BP 96/61
[2020-03-05 10:46] VITALS: BP 115/72
[2020-03-05 10:47] VITALS: BP 109/72
[2020-03-05 10:48] VITALS: BP 117/75
[2020-03-05] MEDS ORDERED: MECL-101 PO ×2 (11:37→11:41)
[2020-03-05] MEDS ORDERED: VANC125C11 PO (11:37)
[2020-03-05] MEDS ORDERED: VANC1VIA3 PO (11:37)
[2020-03-05 12:06] VITALS: BP 109/73
== END 2020-03-05 15:05 | disposition home or self-care (01) | DRG 309 ==
LOC: ED 18:47 → EDIP 22:45 → 5SO 23:45
PROVIDERS: ADMIT Family Medicine; ATTEND Internal Medicine
DX: R00.1 Bradycardia, unspecified (principal); C25.9 Malignant neoplasm of pancreas, unspecified; M48.56XA Collapsed vertebra, not elsewhere classified, lumbar region, initial encounter for fracture; E87.6 Hypokalemia; F03.90 Unspecified dementia, unspecified severity, without behavioral disturbance, psychotic disturbance, mood disturbance, and anxiety; F17.210 Nicotine dependence, cigarettes, uncomplicated; G89.29 Other chronic pain; I95.1 Orthostatic hypotension; J44.9 Chronic obstructive pulmonary disease, unspecified; M81.0 Age-related osteoporosis without current pathological fracture; R29.6 Repeated falls; Z59.0 Homelessness; Z63.8 Other specified problems related to primary support group; Z86.14 Personal history of Methicillin resistant Staphylococcus aureus infection; Z95.0 Presence of cardiac pacemaker; W18.39XA Other fall on same level, initial encounter; Y93.89 Activity, other specified; Y92.89 Other specified places as the place of occurrence of the external cause; Y99.8 Other external cause status
CPT/HCPCS: 36415; 70450; 71045; 72110; 80048; 80053; 81001; 83690; 83735; 84100; 84443; 84484; 85025; 87324; 87493; 89055; 93005; 93306; G0378; J1644; J3370; J7030

== ENCOUNTER 2020-03-29 18:11 | Emergency (ER) | payer MEDICARE, MEDICAID ==
[~2020-03-29] VITALS: Ht 180.3 cm; Wt 76.2 kg
[~2020-03-29 18:11] MED LIST changes: +CARI350T14 PO; +MECL-101 PO; +VANC125C11 PO; +VANC1VIA3 PO
--- NOTE | 2020-03-29 19:46 | NUR ---
PT IN GOWN IN [facility]. PT ATTACHED TO VS AND CARDIAC MONITORS. PT VERBALIZES UNDERSTANDING OF POC AND ER PROCESS AND HAS CALL LIGHT WITHIN REACH AT THIS TIME.
--- NOTE | 2020-03-29 19:49 | NUR ---
XRAY AT AT THIS TIME.
[2020-03-29 20:18] LABS: BASOPHILS % (AUTO) 1 % (0-1); EOSINOPHILS % (AUTO) 3 % (1-7); LYMPHOCYTES % (AUTO) 25 % (22-44); MEAN CORPUSCULAR HEMOGLOBIN 29.2 pg (27.5-34.5); MEAN CORPUSCULAR HGB CONC 31.7 g/dL (33.2-36.2); MEAN PLATELET VOLUME 7.8 fL (7.4-10.4); MONOCYTES % (AUTO) 5 % (2-9); NEUTROPHILS % (AUTO) 66 % (42-75); PLATELET COUNT 405 x10^3/uL (130-400); RED BLOOD COUNT 4.39 x10^6/uL (4.38-5.82); RED CELL DISTRIBUTION WIDTH 17.1 % (9.4-14.8)
[2020-03-29 20:19] LABS: MD NO
[2020-03-29 20:24] LABS: ALANINE AMINOTRANSFERASE 37 U/L (12-78); ALBUMIN 3.4 g/dL (3.4-5.0); ANION GAP 6 mmol/L (5-15); CALCIUM 8.3 mg/dL (8.5-10.1); CHLORIDE 111 mmol/L (98-107); CREATININE 0.86 mg/dL (0.7-1.3)
[2020-03-29 20:28] LABS: ALKALINE PHOSPHATASE 469 U/L (45-117); BILIRUBIN,TOTAL 0.3 mg/dL (0.2-1.0); TOTAL PROTEIN 6.8 g/dL (6.4-8.2); TROPONIN I < 0.015 ng/mL (0.000-0.045)
[2020-03-29 21:00] VITALS: BP 134/62
== END 2020-03-29 21:39 | disposition home or self-care (01) ==
LOC: ED 21:16
DX: R06.00 Dyspnea, unspecified (principal); R42 Dizziness and giddiness; R21 Rash and other nonspecific skin eruption; R07.9 Chest pain, unspecified; F17.210 Nicotine dependence, cigarettes, uncomplicated; J44.9 Chronic obstructive pulmonary disease, unspecified; Z95.0 Presence of cardiac pacemaker; Z90.49 Acquired absence of other specified parts of digestive tract
CPT/HCPCS: 36415; 71045; 80053; 83880; 84484; 85025; 93005; 99285; 99406

== ENCOUNTER 2020-08-13 12:23 | Inpatient (IN) | payer MEDICARE, MEDICAID ==
[~2020-08-13] VITALS: Ht 180.3 cm; Wt 53.4 kg
[~2020-08-13 12:23] MED LIST changes: +CARI-389 PO; -CARI350T14 PO; +DOCU-131 PO; +LIDO700A20 TD; +OXYC5TAB98 PO; -VANC1VIA3 PO; +VANC1VIA36 PO
--- NOTE | 2020-08-13 12:45 | NUR ---
INITIAL PT CONTACT. PT C/O "HORRIBLE BACK AND STOMACH PAIN", PANCREATIC CANCER DX, NO TREATMENT. PT STATES HE HAS BEEN UNABLE TO EAT IN THE LAST 2 DAYS DUE TO THE PAIN. "I JUST REALLY NEED SOME PAIN MEDS, THIS TIME KILLING ME". PT SITTING UPRIGHT ON GURNEY, NADN, VSS. CALL LIGHT AND PERSONAL BELONGINGS WITHIN REACH. WARM BLANKET PROVIDED. AWAITING ERP.
--- NOTE | 2020-08-13 13:47 | NUR ---
REPORT TO PUAL VASQUEZ
[2020-08-13] MEDS ORDERED: HYDROmorphone 1 MG/ML, 1ML INJ IV ONE (14:00)
[2020-08-13] MEDS ORDERED: ONDANSETRON 2MG/ML, 2ML IVPush ONE (14:00)
[2020-08-13] MEDS ORDERED: SODIUM CHLORIDE FLUSH 10ML SYR IVF ONE (14:00)
[2020-08-13] MEDS ORDERED: HYDROmorphone 1 MG/ML, 1ML INJ ONE (14:06)
[2020-08-13] MEDS ORDERED: ONDANSETRON 2MG/ML, 2ML ONE (14:06)
[2020-08-13 14:25] LABS: BASOPHILS % (AUTO) 1 % (0-1); EOSINOPHILS % (AUTO) 1 % (1-7); LYMPHOCYTES % (AUTO) 20 % (22-44); MEAN CORPUSCULAR HGB CONC 33.3 g/dL (33.2-36.2); MEAN PLATELET VOLUME 8.4 fL (7.4-10.4); MONOCYTES % (AUTO) 4 % (2-9); NEUTROPHILS % (AUTO) 74 % (42-75); PLATELET COUNT 355 x10^3/uL (130-400); RED CELL DISTRIBUTION WIDTH 18.4 % (9.4-14.8)
[2020-08-13 14:29] LABS: MD NO
[2020-08-13 14:36] LABS: ALANINE AMINOTRANSFERASE 44 U/L (12-78); ALBUMIN 3.8 g/dL (3.4-5.0); ANION GAP 5 mmol/L (5-15); CALCIUM 9.3 mg/dL (8.5-10.1); CHLORIDE 105 mmol/L (98-107)
[2020-08-13 14:38] LABS: ALKALINE PHOSPHATASE 347 U/L (45-117); BILIRUBIN,TOTAL 0.5 mg/dL (0.2-1.0); TOTAL PROTEIN 7.6 g/dL (6.4-8.2)
[2020-08-13] MEDS ORDERED: SODIUM CHLORIDE FLUSH 10ML SYR IVF PRN (15:00)
--- NOTE | 2020-08-13 15:15 | NUR ---
PT RESTING IN [facility], MONITORING IN PLACE, NADN AT THIS TIME, SOCIAL WORK AT BEDSIDE. WCTM.
--- NOTE | 2020-08-13 15:20 | NUR ---
TP RN: PALLATIVE CARE AT BEDSIDE
--- NOTE | 2020-08-13 16:51 | NUR ---
MEAL TRAY PROVIDED AT THIS TIME.
[2020-08-13] MEDS: FENTANYL 50 MCG PATCH TD SCH (18:25)
[2020-08-13 20:42] VITALS: BP 127/79
[2020-08-13 22:15] VITALS: BP 124/64
[2020-08-14 01:49] VITALS: BP 106/76
[2020-08-14 07:13] VITALS: BP 107/64
[2020-08-14] MEDS: SENNA/DOCUSATE TABLET PO SCH (08:29)
[2020-08-14] MEDS ORDERED: NICOTINE 21 MG/24 HR PATCH.TD24 TD ONE (09:00)
[2020-08-14 12:50] VITALS: BP 108/62
[2020-08-14 20:34] VITALS: BP 125/70
[2020-08-14] MEDS: TEMAZEPAM 15 MG CAPSULE PO PRN (20:54)
[2020-08-15] MEDS: GABAPENTIN 300 MG CAPSULE PO PRN (00:20)
[2020-08-15 00:56] VITALS: BP 154/84
[2020-08-15] MEDS ORDERED: MORPHINE SULFATE 4 MG/ML, 1ML IVPush ONE ×2 (02:00→05:00)
[2020-08-15 07:54] VITALS: BP 118/75
[2020-08-15] MEDS: SENNA/DOCUSATE TABLET PO SCH (10:32)
[2020-08-15] MEDS: HYDROcodone/APAP 10/325 MG TABLET PO PRN ×4 (10:32→23:33)
[2020-08-15 12:12] VITALS: BP 134/78
[2020-08-15 18:45] VITALS: BP 127/79
[2020-08-15] MEDS: TEMAZEPAM 15 MG CAPSULE PO PRN (20:30)
[2020-08-15] MEDS: MORPHINE SULFATE 4 MG/ML, 1ML IVPush PRN (21:48)
[2020-08-16 00:39] VITALS: BP 135/70
[2020-08-16] MEDS: ONDANSETRON ODT 4 MG PO PRN (00:49)
[2020-08-16] MEDS: MORPHINE SULFATE 4 MG/ML, 1ML IVPush PRN ×2 (03:24→20:21)
[2020-08-16] MEDS: HYDROcodone/APAP 10/325 MG TABLET PO PRN ×5 (06:41→21:46)
[2020-08-16] MEDS: SENNA/DOCUSATE TABLET PO SCH (08:24)
[2020-08-16] MEDS: POLYETHYLENE GLYCOL 17 GM PACKET PO PRN (08:24)
[2020-08-16 08:50] VITALS: BP 124/74
[2020-08-16 10:51] VITALS: BP 114/41
[2020-08-16] MEDS: FENTANYL 50 MCG PATCH TD SCH (11:20)
[2020-08-16] MEDS ORDERED: NICOTINE 21 MG/24 HR PATCH.TD24 ONE (13:26)
[2020-08-16] MEDS ORDERED: NICOTINE 21 MG/24 HR PATCH.TD24 TD ONE (13:30)
[2020-08-16 13:49] VITALS: BP 132/83
[2020-08-16] MEDS: ACETAMINOPHEN 325 MG TABLET PO PRN (13:59)
[2020-08-16] MEDS ORDERED: FENTANYL REMOVE PATCH NOTE XX SCH (16:30)
[2020-08-16 20:07] VITALS: BP 117/73
[2020-08-17] MEDS: MORPHINE SULFATE 4 MG/ML, 1ML IVPush PRN ×2 (00:20→10:15)
[2020-08-17] MEDS: HYDROcodone/APAP 10/325 MG TABLET PO PRN ×2 (02:28→07:26)
[2020-08-17 02:43] VITALS: BP 123/82
[2020-08-17] MEDS: SENNA/DOCUSATE TABLET PO SCH (07:25)
[2020-08-17 08:15] VITALS: BP 122/62
[2020-08-17] MEDS: OXYcodone/APAP 10/325MG TABLET PO SCH ×3 (12:09→20:14)
[2020-08-17 12:21] VITALS: BP 126/69
[2020-08-17] MEDS: HYDROmorphone 1 MG/ML, 1ML INJ IV PRN ×3 (14:49→21:17)
[2020-08-17 18:37] VITALS: BP 124/72
[2020-08-17] MEDS: TEMAZEPAM 15 MG CAPSULE PO PRN (21:17)
[2020-08-18] MEDS: TEMAZEPAM 15 MG CAPSULE PO PRN (00:06)
[2020-08-18] MEDS: OXYcodone/APAP 10/325MG TABLET PO SCH ×7 (00:06→23:51)
[2020-08-18 01:55] VITALS: BP 103/60
[2020-08-18] MEDS: HYDROmorphone 1 MG/ML, 1ML INJ IV PRN ×4 (03:40→22:06)
[2020-08-18 05:59] LABS: ANION GAP 4 mmol/L (5-15); CALCIUM 8.7 mg/dL (8.5-10.1); CHLORIDE 105 mmol/L (98-107); CREATININE 0.67 mg/dL (0.7-1.3)
[2020-08-18] MEDS: SENNA/DOCUSATE TABLET PO SCH (08:25)
[2020-08-18 08:28] VITALS: BP 127/74
[2020-08-18] MEDS ORDERED: FAMOTIDINE 20 MG/2 ML IVPush ONE (09:00)
[2020-08-18] MEDS ORDERED: POLYETHYLENE GLYCOL 17 GM PACKET NG ONE (09:00)
[2020-08-18] MEDS ORDERED: FENTANYL 25 MCG PATCH ONE (09:54)
[2020-08-18] MEDS ORDERED: FENTANYL 50 MCG PATCH ONE (09:54)
[2020-08-18] MEDS: KETOROLAC 30 MG/1 ML IVPush SCH ×3 (09:58→21:08)
[2020-08-18] MEDS: SIMETHICONE 125 MG CHEW TAB PO SCH ×3 (09:58→18:00)
[2020-08-18] MEDS: POLYETHYLENE GLYCOL 17 GM PACKET PO PRN (09:58)
[2020-08-18] MEDS: FENTANYL REMOVE PATCH NOTE XX SCH (09:59)
[2020-08-18] MEDS: FENTANYL 75 MCG PATCH TD SCH (09:59)
[2020-08-18 14:15] VITALS: BP 109/65
[2020-08-18 18:53] VITALS: BP 125/82
[2020-08-18] MEDS: FAMOTIDINE 20 MG TABLET PO SCH (21:08)
[2020-08-19 01:48] VITALS: BP 136/78
[2020-08-19] MEDS: HYDROmorphone 1 MG/ML, 1ML INJ IV PRN ×7 (01:58→23:37)
[2020-08-19] MEDS: KETOROLAC 30 MG/1 ML IVPush SCH ×2 (02:38→08:12)
[2020-08-19] MEDS: OXYcodone/APAP 10/325MG TABLET PO SCH ×2 (03:52→08:12)
[2020-08-19 08:00] VITALS: BP 119/77
[2020-08-19] MEDS: SENNA/DOCUSATE TABLET PO SCH (08:11)
[2020-08-19] MEDS: FAMOTIDINE 20 MG TABLET PO SCH ×2 (08:12→20:19)
[2020-08-19] MEDS: SIMETHICONE 125 MG CHEW TAB PO SCH ×3 (08:12→17:57)
[2020-08-19] MEDS: POLYETHYLENE GLYCOL 17 GM PACKET PO PRN (08:12)
[2020-08-19] MEDS: morphine SULFATE 15 MG TAB.IR PO SCH ×2 (09:56→17:16)
[2020-08-19] MEDS ORDERED: NICOTINE 14MG/24 HR PATCH.TD24 TD ONE (11:00)
[2020-08-19] MEDS: OXYcodone/APAP 10/325MG TABLET PO PRN ×2 (12:26→20:19)
[2020-08-19 14:50] VITALS: BP 122/71
[2020-08-19] MEDS: ONDANSETRON ODT 4 MG PO PRN (17:18)
[2020-08-19 19:16] VITALS: BP 119/74
[2020-08-19] MEDS: TEMAZEPAM 15 MG CAPSULE PO PRN ×2 (20:19→23:37)
[2020-08-20 00:45] VITALS: BP 124/81
[2020-08-20] MEDS: morphine SULFATE 15 MG TAB.IR PO SCH ×3 (01:36→21:21)
[2020-08-20] MEDS: OXYcodone/APAP 10/325MG TABLET PO PRN ×2 (02:44→20:32)
[2020-08-20] MEDS: HYDROmorphone 1 MG/ML, 1ML INJ IV PRN ×4 (05:24→22:19)
[2020-08-20 08:12] VITALS: BP 120/75
[2020-08-20] MEDS ORDERED: morphine SULFATE 15 MG TAB.IR PO SCH (09:00)
[2020-08-20] MEDS: SIMETHICONE 125 MG CHEW TAB PO SCH ×3 (09:07→17:05)
[2020-08-20] MEDS: SENNA/DOCUSATE TABLET PO SCH (09:07)
[2020-08-20] MEDS: FAMOTIDINE 20 MG TABLET PO SCH ×2 (09:08→20:32)
[2020-08-20 13:18] VITALS: BP 116/69
[2020-08-20] MEDS: ONDANSETRON ODT 4 MG PO PRN (13:33)
[2020-08-20 18:34] VITALS: BP 107/71
[2020-08-20] MEDS: TEMAZEPAM 15 MG CAPSULE PO PRN (20:32)
[2020-08-20] MEDS: POLYETHYLENE GLYCOL 17 GM PACKET PO PRN (20:33)
[2020-08-21] MEDS: HYDROmorphone 1 MG/ML, 1ML INJ IV PRN (00:14)
[2020-08-21] MEDS: TEMAZEPAM 15 MG CAPSULE PO PRN (00:14)
[2020-08-21 02:01] VITALS: BP 107/88
[2020-08-21 07:55] VITALS: BP 95/61
[2020-08-21] MEDS ORDERED: FENTANYL 25 MCG PATCH ONE ×2 (08:16→15:09)
[2020-08-21] MEDS ORDERED: FENTANYL 50 MCG PATCH ONE ×2 (08:17→15:09)
[2020-08-21] MEDS: SIMETHICONE 125 MG CHEW TAB PO SCH ×3 (08:18→17:18)
[2020-08-21] MEDS: FAMOTIDINE 20 MG TABLET PO SCH ×2 (08:19→21:23)
[2020-08-21] MEDS: morphine SULFATE 15 MG TAB.IR PO SCH ×3 (08:19→21:23)
[2020-08-21] MEDS: FENTANYL 75 MCG PATCH TD SCH ×2 (08:19→15:00)
[2020-08-21] MEDS: SENNA/DOCUSATE TABLET PO SCH (08:19)
[2020-08-21] MEDS: FENTANYL REMOVE PATCH NOTE XX SCH (08:20)
[2020-08-21 09:57] VITALS: BP 105/58
[2020-08-21 14:45] VITALS: BP 116/59
[2020-08-21] MEDS: OXYcodone/APAP 10/325MG TABLET PO PRN ×2 (17:18→23:28)
[2020-08-21 18:44] VITALS: BP 96/57
[2020-08-21] MEDS: DIPHENHYDRAMINE 50 MG CAPSULE PO PRN (23:30)
[2020-08-22 01:55] VITALS: BP 114/69
[2020-08-22] MEDS: morphine SULFATE 15 MG TAB.IR PO SCH ×4 (03:25→20:43)
[2020-08-22 09:26] VITALS: BP 96/60
[2020-08-22] MEDS: SENNA/DOCUSATE TABLET PO SCH (09:27)
[2020-08-22] MEDS: FAMOTIDINE 20 MG TABLET PO SCH ×2 (09:28→20:42)
[2020-08-22] MEDS: SIMETHICONE 125 MG CHEW TAB PO SCH ×3 (09:28→18:20)
[2020-08-22 13:28] VITALS: BP 118/73
[2020-08-22] MEDS: OXYcodone/APAP 10/325MG TABLET PO PRN ×3 (13:51→22:42)
[2020-08-22 18:27] VITALS: BP 110/64
[2020-08-23] MEDS: GABAPENTIN 300 MG CAPSULE PO PRN (00:55)
[2020-08-23] MEDS: morphine SULFATE 15 MG TAB.IR PO SCH ×4 (02:35→20:46)
[2020-08-23 02:37] VITALS: BP 99/57
[2020-08-23 07:51] VITALS: BP_SYST 101; BP_SYST 102; BP_DIAS 65; BP_DIAS 72
[2020-08-23] MEDS: FAMOTIDINE 20 MG TABLET PO SCH ×2 (08:48→20:45)
[2020-08-23] MEDS: SENNA/DOCUSATE TABLET PO SCH (08:48)
[2020-08-23] MEDS: SIMETHICONE 125 MG CHEW TAB PO SCH ×3 (08:48→16:51)
[2020-08-23] MEDS: OXYcodone/APAP 10/325MG TABLET PO PRN ×3 (11:11→21:52)
[2020-08-23 14:00] VITALS: BP 101/64
[2020-08-23 21:01] VITALS: BP 89/48
[2020-08-23 21:49] VITALS: BP 104/70
[2020-08-24 03:50] VITALS: BP 117/71
[2020-08-24] MEDS: morphine SULFATE 15 MG TAB.IR PO SCH ×4 (03:52→20:48)
[2020-08-24] MEDS: FAMOTIDINE 20 MG TABLET PO SCH ×2 (07:31→20:48)
[2020-08-24] MEDS: SIMETHICONE 125 MG CHEW TAB PO SCH ×3 (07:31→18:03)
[2020-08-24] MEDS: SENNA/DOCUSATE TABLET PO SCH (07:32)
[2020-08-24] MEDS: FENTANYL REMOVE PATCH NOTE XX SCH (07:37)
[2020-08-24 09:46] VITALS: BP 113/72
[2020-08-24] MEDS: OXYcodone/APAP 10/325MG TABLET PO PRN ×2 (09:56→15:42)
[2020-08-24] MEDS: ACETAMINOPHEN 325 MG TABLET PO PRN (12:33)
[2020-08-24 13:25] VITALS: BP 115/72
[2020-08-24] MEDS: FENTANYL 75 MCG PATCH TD SCH (15:08)
[2020-08-24 19:18] VITALS: BP 102/68
[2020-08-24] MEDS: TEMAZEPAM 15 MG CAPSULE PO PRN (20:48)
[2020-08-25 00:33] VITALS: BP 119/63
[2020-08-25] MEDS: OXYcodone/APAP 10/325MG TABLET PO PRN (01:01)
[2020-08-25] MEDS: morphine SULFATE 15 MG TAB.IR PO SCH ×4 (03:38→20:58)
[2020-08-25 07:48] VITALS: BP 107/65
[2020-08-25] MEDS: SIMETHICONE 125 MG CHEW TAB PO SCH ×3 (08:34→16:53)
[2020-08-25] MEDS: FAMOTIDINE 20 MG TABLET PO SCH ×2 (08:35→20:58)
[2020-08-25] MEDS: SENNA/DOCUSATE TABLET PO SCH (08:35)
[2020-08-25] MEDS: OXYcodone IR 5MG TABLET PO PRN ×4 (12:04→22:00)
[2020-08-25 13:20] VITALS: BP 119/73
[2020-08-25] MEDS: morphine SULFATE ORAL.CONC 20 MG/ML PO PRN ×4 (13:39→23:01)
[2020-08-25 19:20] VITALS: BP 113/66
[2020-08-25] MEDS: TEMAZEPAM 15 MG CAPSULE PO PRN (20:58)
[2020-08-26] MEDS: DIPHENHYDRAMINE 50 MG CAPSULE PO PRN (00:02)
[2020-08-26] MEDS: OXYcodone IR 5MG TABLET PO PRN ×5 (01:00→22:53)
[2020-08-26 02:17] VITALS: BP 96/55
[2020-08-26] MEDS: morphine SULFATE 15 MG TAB.IR PO SCH ×4 (03:39→21:46)
[2020-08-26 06:28] VITALS: BP 100/54
[2020-08-26] MEDS: SIMETHICONE 125 MG CHEW TAB PO SCH ×3 (08:00→18:15)
[2020-08-26] MEDS: FAMOTIDINE 20 MG TABLET PO SCH ×2 (08:02→19:36)
[2020-08-26] MEDS: SENNA/DOCUSATE TABLET PO SCH (08:02)
[2020-08-26 12:08] VITALS: BP 123/62
[2020-08-26 18:57] VITALS: BP 117/71
[2020-08-26] MEDS: TEMAZEPAM 15 MG CAPSULE PO PRN (21:46)
[2020-08-27 02:18] VITALS: BP 99/63
[2020-08-27] MEDS: morphine SULFATE 15 MG TAB.IR PO SCH ×4 (03:00→21:33)
[2020-08-27] MEDS: OXYcodone IR 5MG TABLET PO PRN ×3 (04:07→19:39)
[2020-08-27 07:04] VITALS: BP 119/74
[2020-08-27] MEDS: FAMOTIDINE 20 MG TABLET PO SCH ×2 (08:00→21:32)
[2020-08-27] MEDS: SIMETHICONE 125 MG CHEW TAB PO SCH ×3 (08:00→17:54)
[2020-08-27] MEDS: SENNA/DOCUSATE TABLET PO SCH (08:00)
[2020-08-27 13:00] VITALS: BP 115/74
[2020-08-27] MEDS: morphine SULFATE ORAL.CONC 20 MG/ML PO PRN (14:11)
[2020-08-27] MEDS: FENTANYL 75 MCG PATCH TD SCH (15:00)
[2020-08-27] MEDS: FENTANYL REMOVE PATCH NOTE XX SCH (15:00)
[2020-08-27] MEDS ORDERED: FENTANYL 25 MCG PATCH ONE (15:57)
[2020-08-27] MEDS ORDERED: FENTANYL 50 MCG PATCH ONE (15:57)
[2020-08-27 19:03] VITALS: BP 127/88
[2020-08-27] MEDS: TEMAZEPAM 15 MG CAPSULE PO PRN (21:33)
[2020-08-28 01:26] VITALS: BP 128/84
[2020-08-28] MEDS: OXYcodone IR 5MG TABLET PO PRN ×5 (01:33→21:56)
[2020-08-28] MEDS: morphine SULFATE 15 MG TAB.IR PO SCH ×4 (02:54→21:17)
[2020-08-28] MEDS: morphine SULFATE ORAL.CONC 20 MG/ML PO PRN ×3 (06:05→20:35)
[2020-08-28 06:47] VITALS: BP 100/63
[2020-08-28] MEDS: SIMETHICONE 125 MG CHEW TAB PO SCH ×3 (08:14→16:22)
[2020-08-28] MEDS: FAMOTIDINE 20 MG TABLET PO SCH ×2 (08:14→20:34)
[2020-08-28] MEDS: SENNA/DOCUSATE TABLET PO SCH (08:15)
[2020-08-28] MEDS: FENTANYL REMOVE PATCH NOTE XX SCH (08:30)
[2020-08-28] MEDS ORDERED: FENTANYL 100 MCG PATCH ONE (11:39)
[2020-08-28] MEDS: FENTANYL 100 MCG PATCH TD SCH (11:52)
[2020-08-28 13:39] VITALS: BP 96/57
[2020-08-28 18:27] VITALS: BP 111/76
[2020-08-28] MEDS: TEMAZEPAM 15 MG CAPSULE PO PRN ×2 (20:34→21:56)
[2020-08-29] MEDS: morphine SULFATE ORAL.CONC 20 MG/ML PO PRN ×3 (03:14→18:15)
[2020-08-29 04:00] VITALS: BP 103/68
[2020-08-29] MEDS: morphine SULFATE 15 MG TAB.IR PO SCH ×4 (04:46→21:12)
[2020-08-29 06:43] VITALS: BP 96/59
[2020-08-29] MEDS: SENNA/DOCUSATE TABLET PO SCH (07:37)
[2020-08-29] MEDS: FAMOTIDINE 20 MG TABLET PO SCH ×2 (07:37→20:03)
[2020-08-29] MEDS: OXYcodone IR 5MG TABLET PO PRN ×4 (07:37→23:47)
[2020-08-29] MEDS: SIMETHICONE 125 MG CHEW TAB PO SCH ×3 (07:37→16:47)
[2020-08-29] MEDS: ONDANSETRON ODT 4 MG PO PRN (07:37)
[2020-08-29 13:42] VITALS: BP 104/64
[2020-08-29 18:56] VITALS: BP 105/68
[2020-08-29] MEDS: TEMAZEPAM 15 MG CAPSULE PO PRN ×2 (20:03→21:11)
[2020-08-30 04:00] VITALS: BP 96/56
[2020-08-30] MEDS: morphine SULFATE 15 MG TAB.IR PO SCH ×4 (05:08→21:01)
[2020-08-30 07:39] VITALS: BP 98/61
[2020-08-30] MEDS: FAMOTIDINE 20 MG TABLET PO SCH ×2 (07:52→21:01)
[2020-08-30] MEDS: SENNA/DOCUSATE TABLET PO SCH (07:52)
[2020-08-30] MEDS: SIMETHICONE 125 MG CHEW TAB PO SCH ×3 (07:52→17:48)
[2020-08-30] MEDS: OXYcodone IR 5MG TABLET PO PRN ×2 (09:33→15:52)
[2020-08-30] MEDS: morphine SULFATE ORAL.CONC 20 MG/ML PO PRN ×4 (12:06→23:12)
[2020-08-30 13:11] VITALS: BP 98/60
[2020-08-30] MEDS ORDERED: FENTANYL 100 MCG PATCH TD SCH (15:00)
[2020-08-30 20:00] VITALS: BP 99/64
[2020-08-30] MEDS: ONDANSETRON ODT 4 MG PO PRN (21:01)
[2020-08-30] MEDS: TEMAZEPAM 15 MG CAPSULE PO PRN (21:01)
[2020-08-30] MEDS: GABAPENTIN 300 MG CAPSULE PO PRN (23:12)
[2020-08-31] MEDS: OXYcodone IR 5MG TABLET PO PRN ×5 (01:37→23:24)
[2020-08-31 02:15] VITALS: BP 90/55
[2020-08-31] MEDS: morphine SULFATE 15 MG TAB.IR PO SCH ×4 (03:25→20:35)
[2020-08-31] MEDS: SIMETHICONE 125 MG CHEW TAB PO SCH ×3 (09:17→18:06)
[2020-08-31] MEDS: FAMOTIDINE 20 MG TABLET PO SCH ×2 (09:17→20:34)
[2020-08-31] MEDS: SENNA/DOCUSATE TABLET PO SCH (09:17)
[2020-08-31] MEDS: FENTANYL REMOVE PATCH NOTE XX SCH (09:17)
[2020-08-31 09:34] VITALS: BP 101/59
[2020-08-31] MEDS: FENTANYL 100 MCG PATCH TD SCH (12:30)
[2020-08-31 15:17] VITALS: BP 98/64
[2020-08-31] MEDS: morphine SULFATE ORAL.CONC 20 MG/ML PO PRN (18:09)
[2020-08-31 19:22] VITALS: BP 107/63
[2020-08-31] MEDS: GABAPENTIN 300 MG CAPSULE PO PRN (20:34)
[2020-08-31] MEDS: TEMAZEPAM 15 MG CAPSULE PO PRN (20:34)
[2020-09-01 01:00] VITALS: BP 92/57
[2020-09-01] MEDS: morphine SULFATE 15 MG TAB.IR PO SCH ×4 (03:05→21:42)
[2020-09-01] MEDS: OXYcodone IR 5MG TABLET PO PRN ×4 (06:16→17:33)
[2020-09-01] MEDS: SENNA/DOCUSATE TABLET PO SCH (08:01)
[2020-09-01] MEDS: FAMOTIDINE 20 MG TABLET PO SCH ×2 (08:01→21:42)
[2020-09-01] MEDS: SIMETHICONE 125 MG CHEW TAB PO SCH ×3 (08:01→17:34)
[2020-09-01 08:19] VITALS: BP 102/65
[2020-09-01 13:14] VITALS: BP 101/66
[2020-09-01 18:54] VITALS: BP 91/53
[2020-09-01] MEDS: morphine SULFATE ORAL.CONC 20 MG/ML PO PRN (19:52)
[2020-09-01] MEDS: TEMAZEPAM 15 MG CAPSULE PO PRN (21:41)
[2020-09-01] MEDS: GABAPENTIN 300 MG CAPSULE PO PRN (21:42)
[2020-09-02 01:27] VITALS: BP 90/50
[2020-09-02] MEDS: morphine SULFATE 15 MG TAB.IR PO SCH ×4 (03:16→21:05)
[2020-09-02] MEDS: OXYcodone IR 5MG TABLET PO PRN ×3 (06:10→17:59)
[2020-09-02] MEDS: FAMOTIDINE 20 MG TABLET PO SCH ×2 (08:03→21:05)
[2020-09-02] MEDS: SENNA/DOCUSATE TABLET PO SCH (08:03)
[2020-09-02] MEDS: SIMETHICONE 125 MG CHEW TAB PO SCH ×3 (08:03→17:59)
[2020-09-02 09:05] VITALS: BP 98/62
[2020-09-02] MEDS: morphine SULFATE ORAL.CONC 20 MG/ML PO PRN ×2 (09:50→20:20)
[2020-09-02 14:07] VITALS: BP 137/83
[2020-09-02 15:00] VITALS: BP 96/58
[2020-09-02 19:09] VITALS: BP 100/61
[2020-09-02] MEDS: TEMAZEPAM 15 MG CAPSULE PO PRN (21:05)
[2020-09-02] MEDS: GABAPENTIN 300 MG CAPSULE PO PRN (21:05)
[2020-09-03] MEDS: OXYcodone IR 5MG TABLET PO PRN ×3 (03:01→21:26)
[2020-09-03] MEDS: morphine SULFATE 15 MG TAB.IR PO SCH ×4 (03:01→20:25)
[2020-09-03 03:05] VITALS: BP 105/58
[2020-09-03] MEDS: morphine SULFATE ORAL.CONC 20 MG/ML PO PRN ×5 (07:47→23:50)
[2020-09-03 08:17] VITALS: BP 103/64
[2020-09-03] MEDS: SENNA/DOCUSATE TABLET PO SCH (09:22)
[2020-09-03] MEDS: SIMETHICONE 125 MG CHEW TAB PO SCH ×3 (09:24→16:50)
[2020-09-03] MEDS: FAMOTIDINE 20 MG TABLET PO SCH ×2 (09:24→20:25)
[2020-09-03] MEDS: FENTANYL REMOVE PATCH NOTE XX SCH (09:29)
[2020-09-03] MEDS: NICOTINE 14MG/24 HR PATCH.TD24 TD SCH (12:10)
[2020-09-03] MEDS: FENTANYL 100 MCG PATCH TD SCH (12:11)
[2020-09-03 13:55] VITALS: BP 104/65
[2020-09-03] MEDS: GABAPENTIN 300 MG CAPSULE PO PRN (16:50)
[2020-09-03 20:21] VITALS: BP 109/71
[2020-09-03] MEDS: TEMAZEPAM 15 MG CAPSULE PO PRN (21:25)
[2020-09-04] MEDS: morphine SULFATE 15 MG TAB.IR PO SCH ×2 (02:36→09:35)
[2020-09-04 02:37] VITALS: BP 109/68
[2020-09-04] MEDS: OXYcodone IR 5MG TABLET PO PRN ×3 (05:32→20:00)
[2020-09-04] MEDS: morphine SULFATE ORAL.CONC 20 MG/ML PO PRN ×3 (06:43→23:05)
[2020-09-04 07:50] VITALS: BP 103/61
[2020-09-04] MEDS: FAMOTIDINE 20 MG TABLET PO SCH ×2 (09:34→21:08)
[2020-09-04] MEDS: SIMETHICONE 125 MG CHEW TAB PO SCH ×3 (09:34→16:58)
[2020-09-04] MEDS: SENNA/DOCUSATE TABLET PO SCH (09:34)
[2020-09-04] MEDS: NICOTINE 14MG/24 HR PATCH.TD24 TD SCH (09:36)
[2020-09-04 14:21] VITALS: BP 94/56
[2020-09-04] MEDS: POLYETHYLENE GLYCOL 17 GM PACKET PO PRN (17:05)
[2020-09-04 18:24] VITALS: BP 104/69
[2020-09-04] MEDS: GABAPENTIN 300 MG CAPSULE PO PRN (21:08)
[2020-09-04] MEDS: TEMAZEPAM 15 MG CAPSULE PO PRN (21:15)
[2020-09-05 01:05] VITALS: BP 93/58
[2020-09-05] MEDS: OXYcodone IR 5MG TABLET PO PRN ×4 (01:05→23:32)
[2020-09-05] MEDS: morphine SULFATE ORAL.CONC 20 MG/ML PO PRN ×2 (02:44→08:03)
[2020-09-05 07:41] VITALS: BP 82/54
[2020-09-05] MEDS: SIMETHICONE 125 MG CHEW TAB PO SCH ×3 (07:51→17:00)
[2020-09-05] MEDS: FAMOTIDINE 20 MG TABLET PO SCH ×2 (08:03→19:41)
[2020-09-05] MEDS: SENNA/DOCUSATE TABLET PO SCH (08:04)
[2020-09-05] MEDS: NICOTINE 14MG/24 HR PATCH.TD24 TD SCH (11:35)
[2020-09-05 13:40] VITALS: BP 109/69
[2020-09-05 18:54] VITALS: BP 109/69
[2020-09-05] MEDS: GABAPENTIN 300 MG CAPSULE PO PRN (22:26)
[2020-09-06] MEDS: TEMAZEPAM 15 MG CAPSULE PO PRN ×2 (00:06→20:57)
[2020-09-06 00:07] VITALS: BP 106/63
[2020-09-06 07:58] VITALS: BP 90/56
[2020-09-06 07:59] VITALS: BP 85/62
[2020-09-06] MEDS: SIMETHICONE 125 MG CHEW TAB PO SCH ×3 (08:07→17:38)
[2020-09-06] MEDS: FAMOTIDINE 20 MG TABLET PO SCH ×2 (08:08→19:53)
[2020-09-06] MEDS: OXYcodone IR 5MG TABLET PO PRN ×2 (08:08→13:11)
[2020-09-06] MEDS: SENNA/DOCUSATE TABLET PO SCH (08:09)
[2020-09-06] MEDS: FENTANYL REMOVE PATCH NOTE XX SCH (08:10)
[2020-09-06] MEDS: morphine SULFATE ORAL.CONC 20 MG/ML PO PRN ×5 (10:42→23:44)
[2020-09-06] MEDS: FENTANYL 100 MCG PATCH TD SCH (13:09)
[2020-09-06] MEDS: NICOTINE 14MG/24 HR PATCH.TD24 TD SCH (13:10)
[2020-09-06 13:16] VITALS: BP 88/51
[2020-09-06] MEDS ORDERED: HYDROmorphone 1 MG/ML, 1ML INJ IV PRN (14:00)
[2020-09-06] MEDS ORDERED: morphine SULFATE ORAL.CONC 20 MG/ML PO PRN (14:00)
[2020-09-06] MEDS: ENOXAPARIN 40 MG/0.4 ML SQ SCH (15:57)
[2020-09-06 19:07] VITALS: BP 100/71
[2020-09-07 00:04] VITALS: BP 103/67
[2020-09-07] MEDS: GABAPENTIN 300 MG CAPSULE PO PRN (01:18)
[2020-09-07 08:47] VITALS: BP 112/74
[2020-09-07] MEDS: FAMOTIDINE 20 MG TABLET PO SCH ×2 (08:50→20:51)
[2020-09-07] MEDS: morphine SULFATE ORAL.CONC 20 MG/ML PO PRN ×4 (08:50→20:52)
[2020-09-07] MEDS: SIMETHICONE 125 MG CHEW TAB PO SCH ×3 (08:50→16:51)
[2020-09-07] MEDS: SENNA/DOCUSATE TABLET PO SCH (08:50)
[2020-09-07] MEDS: NICOTINE 14MG/24 HR PATCH.TD24 TD SCH (11:56)
[2020-09-07] MEDS: ENOXAPARIN 40 MG/0.4 ML SQ SCH (15:05)
[2020-09-07 15:06] VITALS: BP 94/60
[2020-09-07 19:07] VITALS: BP 103/70
[2020-09-07] MEDS: TEMAZEPAM 15 MG CAPSULE PO PRN (20:51)
[2020-09-08] MEDS: morphine SULFATE ORAL.CONC 20 MG/ML PO PRN ×5 (00:46→20:46)
[2020-09-08] MEDS: TEMAZEPAM 15 MG CAPSULE PO PRN ×2 (00:46→20:46)
[2020-09-08 01:11] VITALS: BP 96/65
[2020-09-08 04:39] LABS: CREATININE 0.75 mg/dL (0.7-1.3)
[2020-09-08 07:15] VITALS: BP 91/59
[2020-09-08] MEDS: SIMETHICONE 125 MG CHEW TAB PO SCH ×3 (07:51→17:10)
[2020-09-08] MEDS: FAMOTIDINE 20 MG TABLET PO SCH ×2 (07:51→20:46)
[2020-09-08] MEDS: SENNA/DOCUSATE TABLET PO SCH (07:51)
[2020-09-08] MEDS: NICOTINE 14MG/24 HR PATCH.TD24 TD SCH (12:23)
[2020-09-08 13:01] VITALS: BP 95/62
[2020-09-08] MEDS: ENOXAPARIN 40 MG/0.4 ML SQ SCH (15:28)
[2020-09-08] MEDS: MAGNESIUM CITRATE 300ML ORAL SOL PO PRN (15:29)
[2020-09-08 18:58] VITALS: BP 93/55
[2020-09-09] MEDS: morphine SULFATE ORAL.CONC 20 MG/ML PO PRN ×7 (00:30→19:51)
[2020-09-09 01:16] VITALS: BP 92/52
[2020-09-09] MEDS: SIMETHICONE 125 MG CHEW TAB PO SCH ×3 (08:26→16:45)
[2020-09-09] MEDS: FAMOTIDINE 20 MG TABLET PO SCH ×2 (08:26→19:50)
[2020-09-09] MEDS: SENNA/DOCUSATE TABLET PO SCH (08:26)
[2020-09-09 08:29] VITALS: BP 111/61
[2020-09-09] MEDS: FENTANYL REMOVE PATCH NOTE XX SCH (11:55)
[2020-09-09] MEDS: NICOTINE 14MG/24 HR PATCH.TD24 TD SCH (11:55)
[2020-09-09] MEDS: FENTANYL 100 MCG PATCH TD SCH (11:55)
[2020-09-09 13:45] VITALS: BP 105/68
[2020-09-09] MEDS: KETOROLAC 30 MG/1 ML IVPush PRN ×2 (14:17→22:45)
[2020-09-09] MEDS: ENOXAPARIN 40 MG/0.4 ML SQ SCH (14:19)
[2020-09-09 18:59] VITALS: BP 94/63
[2020-09-09] MEDS: TEMAZEPAM 15 MG CAPSULE PO PRN ×2 (19:50→22:45)
[2020-09-10 01:11] VITALS: BP 94/65
[2020-09-10] MEDS: morphine SULFATE ORAL.CONC 20 MG/ML PO PRN ×7 (01:17→21:42)
[2020-09-10 05:47] LABS: BASOPHILS % (AUTO) 1 % (0-1); EOSINOPHILS % (AUTO) 9 % (1-7); LYMPHOCYTES % (AUTO) 42 % (22-44); MEAN CORPUSCULAR HEMOGLOBIN 32.3 pg (27.5-34.5); MEAN CORPUSCULAR HGB CONC 33.5 g/dL (33.2-36.2); MEAN PLATELET VOLUME 9.6 fL (7.4-10.4); MONOCYTES % (AUTO) 7 % (2-9); NEUTROPHILS % (AUTO) 41 % (42-75); PLATELET COUNT 221 x10^3/uL (130-400); RED BLOOD COUNT 4.34 x10^6/uL (4.38-5.82); RED CELL DISTRIBUTION WIDTH 15.8 % (9.4-14.8)
[2020-09-10 05:57] LABS: CHLORIDE 102 mmol/L (98-107)
[2020-09-10 06:03] LABS: ANION GAP 6 mmol/L (5-15); CALCIUM 9.1 mg/dL (8.5-10.1); CREATININE 0.92 mg/dL (0.7-1.3)
[2020-09-10 06:07] LABS: MD NO
[2020-09-10 07:53] VITALS: BP 91/57
[2020-09-10] MEDS: FAMOTIDINE 20 MG TABLET PO SCH ×2 (09:17→21:41)
[2020-09-10] MEDS: SENNA/DOCUSATE TABLET PO SCH (09:17)
[2020-09-10] MEDS: SIMETHICONE 125 MG CHEW TAB PO SCH ×3 (09:17→17:16)
[2020-09-10] MEDS: NICOTINE 14MG/24 HR PATCH.TD24 TD SCH (11:06)
[2020-09-10] MEDS: KETOROLAC 30 MG/1 ML IVPush PRN ×2 (11:06→17:16)
[2020-09-10] MEDS: GABAPENTIN 300 MG CAPSULE PO PRN (11:06)
[2020-09-10 14:03] VITALS: BP 90/63
[2020-09-10] MEDS: ENOXAPARIN 40 MG/0.4 ML SQ SCH (15:01)
[2020-09-10 18:56] VITALS: BP 90/56
[2020-09-10] MEDS: TEMAZEPAM 15 MG CAPSULE PO PRN (21:41)
[2020-09-11] MEDS: KETOROLAC 30 MG/1 ML IVPush PRN ×2 (02:03→13:05)
[2020-09-11 02:06] VITALS: BP 89/59
[2020-09-11] MEDS: morphine SULFATE ORAL.CONC 20 MG/ML PO PRN ×6 (04:16→22:03)
[2020-09-11 05:39] LABS: CREATININE 1.02 mg/dL (0.7-1.3)
[2020-09-11 07:16] VITALS: BP 89/55
[2020-09-11] MEDS: SIMETHICONE 125 MG CHEW TAB PO SCH ×3 (08:40→16:49)
[2020-09-11] MEDS: FAMOTIDINE 20 MG TABLET PO SCH ×2 (08:40→19:57)
[2020-09-11] MEDS: SENNA/DOCUSATE TABLET PO SCH (08:44)
[2020-09-11] MEDS ORDERED: ALBUMIN HUMAN 25% 100 ML IV PRN (11:30)
[2020-09-11] MEDS ORDERED: SODIUM CHLORIDE 0.9%, 500ML IVBOLUS ONE (11:30)
[2020-09-11] MEDS: NICOTINE 14MG/24 HR PATCH.TD24 TD SCH (11:31)
[2020-09-11 12:41] VITALS: BP 87/57
[2020-09-11] MEDS: ENOXAPARIN 40 MG/0.4 ML SQ SCH (13:38)
[2020-09-11 18:09] VITALS: BP 104/59
[2020-09-11] MEDS: TEMAZEPAM 15 MG CAPSULE PO PRN ×2 (19:56→22:02)
[2020-09-12 04:00] VITALS: BP 110/59
[2020-09-12 05:38] LABS: BASOPHILS % (AUTO) 1 % (0-1); EOSINOPHILS % (AUTO) 6 % (1-7); LYMPHOCYTES % (AUTO) 29 % (22-44); MEAN CORPUSCULAR HEMOGLOBIN 31.8 pg (27.5-34.5); MEAN CORPUSCULAR HGB CONC 33.3 g/dL (33.2-36.2); MEAN PLATELET VOLUME 9.6 fL (7.4-10.4); MONOCYTES % (AUTO) 9 % (2-9); NEUTROPHILS % (AUTO) 55 % (42-75); PLATELET COUNT 131 x10^3/uL (130-400); RED BLOOD COUNT 3.78 x10^6/uL (4.38-5.82)
[2020-09-12 05:46] LABS: MD NO
[2020-09-12 05:47] LABS: ANION GAP 6 mmol/L (5-15); CALCIUM 8.6 mg/dL (8.5-10.1); CHLORIDE 107 mmol/L (98-107)
[2020-09-12 05:49] LABS: CREATININE 0.81 mg/dL (0.7-1.3)
[2020-09-12 05:50] LABS: ALANINE AMINOTRANSFERASE 59 U/L (12-78); ALKALINE PHOSPHATASE 311 U/L (45-117); BILIRUBIN,TOTAL 0.4 mg/dL (0.2-1.0); TOTAL PROTEIN 5.8 g/dL (6.4-8.2)
[2020-09-12] MEDS: morphine SULFATE ORAL.CONC 20 MG/ML PO PRN ×7 (05:59→20:32)
[2020-09-12 07:32] VITALS: BP 95/59
[2020-09-12] MEDS: FAMOTIDINE 20 MG TABLET PO SCH ×2 (08:28→20:32)
[2020-09-12] MEDS: SIMETHICONE 125 MG CHEW TAB PO SCH ×3 (08:28→18:29)
[2020-09-12] MEDS: SENNA/DOCUSATE TABLET PO SCH (08:29)
[2020-09-12] MEDS: FENTANYL 100 MCG PATCH TD SCH (12:34)
[2020-09-12] MEDS: NICOTINE 14MG/24 HR PATCH.TD24 TD SCH (12:34)
[2020-09-12] MEDS: FENTANYL REMOVE PATCH NOTE XX SCH (12:34)
[2020-09-12 13:18] VITALS: BP 105/62
[2020-09-12] MEDS: GABAPENTIN 300 MG CAPSULE PO PRN (13:46)
[2020-09-12] MEDS: ENOXAPARIN 40 MG/0.4 ML SQ SCH (15:50)
[2020-09-12 19:16] VITALS: BP 111/73
[2020-09-12] MEDS: LORazepam 1MG TABLET PO PRN (20:32)
[2020-09-13] MEDS: morphine SULFATE ORAL.CONC 20 MG/ML PO PRN ×4 (00:35→20:28)
[2020-09-13 00:37] VITALS: BP 112/77
[2020-09-13 06:54] VITALS: BP 104/62
[2020-09-13] MEDS: SIMETHICONE 125 MG CHEW TAB PO SCH ×3 (08:06→17:57)
[2020-09-13] MEDS: SENNA/DOCUSATE TABLET PO SCH (08:06)
[2020-09-13] MEDS: FAMOTIDINE 20 MG TABLET PO SCH ×2 (08:06→20:27)
[2020-09-13] MEDS: NICOTINE 14MG/24 HR PATCH.TD24 TD SCH (12:08)
[2020-09-13 12:46] VITALS: BP 99/61
[2020-09-13] MEDS: ENOXAPARIN 40 MG/0.4 ML SQ SCH (15:45)
[2020-09-13 19:34] VITALS: BP 109/72
[2020-09-13] MEDS: LORazepam 1MG TABLET PO PRN (22:19)
[2020-09-14 01:12] VITALS: BP 112/77
[2020-09-14] MEDS: morphine SULFATE ORAL.CONC 20 MG/ML PO PRN ×5 (01:14→23:06)
[2020-09-14 04:53] LABS: CREATININE 0.79 mg/dL (0.7-1.3)
[2020-09-14 08:08] VITALS: BP 113/71
[2020-09-14] MEDS: FAMOTIDINE 20 MG TABLET PO SCH ×2 (08:12→20:14)
[2020-09-14] MEDS: SIMETHICONE 125 MG CHEW TAB PO SCH ×3 (08:13→17:48)
[2020-09-14] MEDS: SENNA/DOCUSATE TABLET PO SCH (08:13)
[2020-09-14] MEDS: NICOTINE 14MG/24 HR PATCH.TD24 TD SCH (12:17)
[2020-09-14 13:44] VITALS: BP 93/58
[2020-09-14] MEDS: ENOXAPARIN 40 MG/0.4 ML SQ SCH (16:18)
[2020-09-14] MEDS: POLYETHYLENE GLYCOL 17 GM PACKET PO SCH ×2 (17:00→21:00)
[2020-09-14] MEDS: GABAPENTIN 300 MG CAPSULE PO PRN (17:48)
[2020-09-14] MEDS: TEMAZEPAM 15 MG CAPSULE PO PRN ×2 (20:14→23:06)
[2020-09-15 01:44] VITALS: BP 100/65
[2020-09-15] MEDS: morphine SULFATE ORAL.CONC 20 MG/ML PO PRN ×5 (03:13→19:02)
[2020-09-15 07:44] VITALS: BP 99/55
[2020-09-15] MEDS: POLYETHYLENE GLYCOL 17 GM PACKET PO SCH ×3 (08:26→21:00)
[2020-09-15] MEDS: FAMOTIDINE 20 MG TABLET PO SCH ×2 (08:26→21:48)
[2020-09-15] MEDS: SIMETHICONE 125 MG CHEW TAB PO SCH ×3 (08:26→17:50)
[2020-09-15] MEDS: SENNA/DOCUSATE TABLET PO SCH (08:26)
[2020-09-15] MEDS: FENTANYL 100 MCG PATCH TD SCH (11:47)
[2020-09-15] MEDS: FENTANYL REMOVE PATCH NOTE XX SCH (11:47)
[2020-09-15] MEDS: NICOTINE 14MG/24 HR PATCH.TD24 TD SCH (11:49)
[2020-09-15 13:30] VITALS: BP 88/54
[2020-09-15 14:10] VITALS: BP 96/54
[2020-09-15] MEDS: ENOXAPARIN 40 MG/0.4 ML SQ SCH (15:31)
[2020-09-15 18:35] VITALS: BP 89/59
[2020-09-15 19:01] VITALS: BP 101/54
[2020-09-15] MEDS: TEMAZEPAM 15 MG CAPSULE PO PRN (21:48)
[2020-09-16 01:38] VITALS: BP 96/55
[2020-09-16] MEDS: morphine SULFATE ORAL.CONC 20 MG/ML PO PRN ×6 (04:20→22:42)
[2020-09-16 06:38] VITALS: BP 99/63
[2020-09-16] MEDS: FAMOTIDINE 20 MG TABLET PO SCH ×2 (07:47→20:29)
[2020-09-16] MEDS: SIMETHICONE 125 MG CHEW TAB PO SCH ×3 (07:47→18:41)
[2020-09-16] MEDS: SENNA/DOCUSATE TABLET PO SCH (09:00)
[2020-09-16] MEDS: POLYETHYLENE GLYCOL 17 GM PACKET PO SCH ×2 (09:00→20:29)
[2020-09-16] MEDS: NICOTINE 14MG/24 HR PATCH.TD24 TD SCH (11:31)
[2020-09-16 13:27] VITALS: BP 88/55
[2020-09-16] MEDS: ENOXAPARIN 40 MG/0.4 ML SQ SCH (15:19)
[2020-09-16 18:44] VITALS: BP 99/60
[2020-09-16] MEDS: TEMAZEPAM 15 MG CAPSULE PO PRN ×2 (20:28→22:42)
[2020-09-17 01:02] VITALS: BP 98/55
[2020-09-17] MEDS: morphine SULFATE ORAL.CONC 20 MG/ML PO PRN ×3 (03:08→12:28)
[2020-09-17 05:47] LABS: CREATININE 0.67 mg/dL (0.7-1.3)
[2020-09-17 08:20] VITALS: BP 84/54
[2020-09-17] MEDS: POLYETHYLENE GLYCOL 17 GM PACKET PO SCH ×2 (08:22→21:00)
[2020-09-17] MEDS: SENNA/DOCUSATE TABLET PO SCH (08:23)
[2020-09-17] MEDS: FAMOTIDINE 20 MG TABLET PO SCH ×2 (08:24→22:32)
[2020-09-17] MEDS: SIMETHICONE 125 MG CHEW TAB PO SCH ×3 (08:25→17:56)
[2020-09-17] MEDS: NICOTINE 14MG/24 HR PATCH.TD24 TD SCH (12:28)
[2020-09-17 14:18] VITALS: BP 104/64
[2020-09-17] MEDS: ENOXAPARIN 40 MG/0.4 ML SQ SCH (16:25)
[2020-09-17 18:59] VITALS: BP 108/73
[2020-09-18] MEDS: TEMAZEPAM 15 MG CAPSULE PO PRN (01:25)
[2020-09-18] MEDS: morphine SULFATE ORAL.CONC 20 MG/ML PO PRN ×2 (01:25→08:15)
[2020-09-18 08:12] VITALS: BP 102/67
[2020-09-18] MEDS: SENNA/DOCUSATE TABLET PO SCH (08:15)
[2020-09-18] MEDS: SIMETHICONE 125 MG CHEW TAB PO SCH ×3 (08:15→17:58)
[2020-09-18] MEDS: FAMOTIDINE 20 MG TABLET PO SCH ×2 (08:15→21:13)
[2020-09-18] MEDS: POLYETHYLENE GLYCOL 17 GM PACKET PO SCH ×3 (08:16→21:00)
[2020-09-18] MEDS: FENTANYL REMOVE PATCH NOTE XX SCH (10:53)
[2020-09-18] MEDS: FENTANYL 100 MCG PATCH TD SCH (11:08)
[2020-09-18] MEDS: NICOTINE 14MG/24 HR PATCH.TD24 TD SCH (11:08)
[2020-09-18] MEDS: morphine SULFATE 15 MG TAB.IR PO PRN ×4 (12:14→22:57)
[2020-09-18 14:14] VITALS: BP 101/65
[2020-09-18] MEDS: ENOXAPARIN 40 MG/0.4 ML SQ SCH (16:07)
[2020-09-18 18:58] VITALS: BP 100/74
[2020-09-19 02:49] VITALS: BP 108/65
[2020-09-19] MEDS: morphine SULFATE 15 MG TAB.IR PO PRN ×6 (02:51→22:28)
[2020-09-19 07:43] VITALS: BP 102/61
[2020-09-19] MEDS: SIMETHICONE 125 MG CHEW TAB PO SCH ×3 (08:09→17:51)
[2020-09-19] MEDS: FAMOTIDINE 20 MG TABLET PO SCH ×2 (08:09→21:02)
[2020-09-19] MEDS: POLYETHYLENE GLYCOL 17 GM PACKET PO SCH ×2 (08:09→21:00)
[2020-09-19] MEDS: SENNA/DOCUSATE TABLET PO SCH (09:58)
[2020-09-19] MEDS: NICOTINE 14MG/24 HR PATCH.TD24 TD SCH (11:10)
[2020-09-19 13:55] VITALS: BP 101/65
[2020-09-19] MEDS: ENOXAPARIN 40 MG/0.4 ML SQ SCH (14:41)
[2020-09-19 21:08] VITALS: BP 105/66
[2020-09-19] MEDS: TEMAZEPAM 15 MG CAPSULE PO PRN (22:32)
[2020-09-20 01:30] VITALS: BP 103/62
[2020-09-20] MEDS: morphine SULFATE 15 MG TAB.IR PO PRN ×5 (04:43→20:03)
[2020-09-20 05:05] LABS: CREATININE 0.61 mg/dL (0.7-1.3)
[2020-09-20 07:31] VITALS: BP 95/60
[2020-09-20] MEDS: SIMETHICONE 125 MG CHEW TAB PO SCH ×3 (08:56→16:06)
[2020-09-20] MEDS: FAMOTIDINE 20 MG TABLET PO SCH ×2 (08:56→20:02)
[2020-09-20] MEDS: SENNA/DOCUSATE TABLET PO SCH (08:56)
[2020-09-20] MEDS: POLYETHYLENE GLYCOL 17 GM PACKET PO SCH ×2 (09:00→20:03)
[2020-09-20] MEDS: NICOTINE 14MG/24 HR PATCH.TD24 TD SCH (12:43)
[2020-09-20 13:26] VITALS: BP 94/49
[2020-09-20] MEDS: ENOXAPARIN 40 MG/0.4 ML SQ SCH (16:07)
[2020-09-20 19:26] VITALS: BP 109/68
[2020-09-21] MEDS: morphine SULFATE 15 MG TAB.IR PO PRN ×3 (01:30→19:55)
[2020-09-21 01:31] VITALS: BP 110/61
[2020-09-21 07:59] VITALS: BP 111/68
[2020-09-21] MEDS: SENNA/DOCUSATE TABLET PO SCH (08:25)
[2020-09-21] MEDS: FAMOTIDINE 20 MG TABLET PO SCH ×2 (08:25→19:55)
[2020-09-21] MEDS: POLYETHYLENE GLYCOL 17 GM PACKET PO SCH ×2 (08:25→20:48)
[2020-09-21] MEDS: SIMETHICONE 125 MG CHEW TAB PO SCH ×3 (08:25→18:32)
[2020-09-21] MEDS: FENTANYL 100 MCG PATCH TD SCH (11:47)
[2020-09-21] MEDS: NICOTINE 14MG/24 HR PATCH.TD24 TD SCH (11:47)
[2020-09-21] MEDS: FENTANYL REMOVE PATCH NOTE XX SCH (11:51)
[2020-09-21 12:29] VITALS: BP 89/52
[2020-09-21] MEDS: ENOXAPARIN 40 MG/0.4 ML SQ SCH (16:00)
[2020-09-21 19:31] VITALS: BP 97/60
[2020-09-22 02:24] VITALS: BP 105/60
[2020-09-22] MEDS: morphine SULFATE 15 MG TAB.IR PO PRN ×4 (02:27→23:30)
[2020-09-22 07:05] VITALS: BP 93/57
[2020-09-22] MEDS: POLYETHYLENE GLYCOL 17 GM PACKET PO SCH ×2 (08:16→21:00)
[2020-09-22] MEDS: SENNA/DOCUSATE TABLET PO SCH (08:16)
[2020-09-22] MEDS: SIMETHICONE 125 MG CHEW TAB PO SCH ×3 (08:17→17:16)
[2020-09-22] MEDS: FAMOTIDINE 20 MG TABLET PO SCH ×2 (08:17→21:37)
[2020-09-22] MEDS: NICOTINE 14MG/24 HR PATCH.TD24 TD SCH (11:30)
[2020-09-22 13:20] VITALS: BP 94/61
[2020-09-22] MEDS: ENOXAPARIN 40 MG/0.4 ML SQ SCH (15:39)
[2020-09-22 19:09] VITALS: BP 112/62
[2020-09-22] MEDS: TEMAZEPAM 15 MG CAPSULE PO PRN (23:32)
[2020-09-23] MEDS: GABAPENTIN 300 MG CAPSULE PO PRN (00:56)
[2020-09-23] MEDS: TEMAZEPAM 15 MG CAPSULE PO PRN (00:56)
[2020-09-23 05:19] LABS: CREATININE 0.62 mg/dL (0.7-1.3)
[2020-09-23 07:46] VITALS: BP 97/61
[2020-09-23] MEDS: SIMETHICONE 125 MG CHEW TAB PO SCH ×3 (09:22→17:50)
[2020-09-23] MEDS: SENNA/DOCUSATE TABLET PO SCH (09:22)
[2020-09-23] MEDS: FAMOTIDINE 20 MG TABLET PO SCH ×2 (09:22→20:47)
[2020-09-23] MEDS: morphine SULFATE 15 MG TAB.IR PO PRN ×4 (09:22→22:12)
[2020-09-23] MEDS: POLYETHYLENE GLYCOL 17 GM PACKET PO SCH ×2 (09:24→20:45)
[2020-09-23] MEDS: NICOTINE 14MG/24 HR PATCH.TD24 TD SCH (12:15)
[2020-09-23] MEDS: ENOXAPARIN 40 MG/0.4 ML SQ SCH (15:34)
[2020-09-23 19:03] VITALS: BP 99/58
[2020-09-24] MEDS: morphine SULFATE 15 MG TAB.IR PO PRN ×5 (01:16→23:06)
[2020-09-24] MEDS: SIMETHICONE 125 MG CHEW TAB PO SCH ×3 (08:00→18:00)
[2020-09-24] MEDS: FAMOTIDINE 20 MG TABLET PO SCH ×2 (09:00→20:31)
[2020-09-24] MEDS: SENNA/DOCUSATE TABLET PO SCH (09:00)
[2020-09-24] MEDS: POLYETHYLENE GLYCOL 17 GM PACKET PO SCH ×2 (09:00→20:31)
[2020-09-24] MEDS: FENTANYL REMOVE PATCH NOTE XX SCH (11:48)
[2020-09-24] MEDS: NICOTINE 14MG/24 HR PATCH.TD24 TD SCH (11:48)
[2020-09-24] MEDS: FENTANYL 100 MCG PATCH TD SCH (11:48)
[2020-09-24] MEDS: ENOXAPARIN 40 MG/0.4 ML SQ SCH (14:04)
[2020-09-24] MEDS: TEMAZEPAM 15 MG CAPSULE PO PRN (23:05)
[2020-09-25] MEDS: SENNA/DOCUSATE TABLET PO SCH (07:50)
[2020-09-25] MEDS: FAMOTIDINE 20 MG TABLET PO SCH ×2 (07:50→21:17)
[2020-09-25] MEDS: POLYETHYLENE GLYCOL 17 GM PACKET PO SCH ×2 (07:51→21:17)
[2020-09-25] MEDS: morphine SULFATE 15 MG TAB.IR PO PRN ×5 (07:51→23:24)
[2020-09-25] MEDS: SIMETHICONE 125 MG CHEW TAB PO SCH ×3 (07:51→16:44)
[2020-09-25] MEDS: NICOTINE 14MG/24 HR PATCH.TD24 TD SCH (11:37)
[2020-09-26] MEDS: TEMAZEPAM 15 MG CAPSULE PO PRN (00:37)
[2020-09-26] MEDS: morphine SULFATE 15 MG TAB.IR PO PRN ×5 (03:31→19:26)
[2020-09-26 05:40] LABS: CREATININE 0.64 mg/dL (0.7-1.3)
[2020-09-26] MEDS: SENNA/DOCUSATE TABLET PO SCH (09:00)
[2020-09-26] MEDS: POLYETHYLENE GLYCOL 17 GM PACKET PO SCH ×2 (09:13→21:10)
[2020-09-26] MEDS: SIMETHICONE 125 MG CHEW TAB PO SCH ×3 (09:13→18:21)
[2020-09-26] MEDS: FAMOTIDINE 20 MG TABLET PO SCH ×2 (09:13→21:10)
[2020-09-26] MEDS: ACETAMINOPHEN 325 MG TABLET PO PRN (10:26)
[2020-09-26] MEDS: NICOTINE 14MG/24 HR PATCH.TD24 TD SCH (13:19)
[2020-09-27] MEDS: morphine SULFATE 15 MG TAB.IR PO PRN ×6 (00:05→23:27)
[2020-09-27] MEDS: TEMAZEPAM 15 MG CAPSULE PO PRN ×2 (01:51→23:32)
[2020-09-27] MEDS: ACETAMINOPHEN 325 MG TABLET PO PRN (07:43)
[2020-09-27] MEDS: FAMOTIDINE 20 MG TABLET PO SCH ×2 (08:48→21:10)
[2020-09-27] MEDS: SIMETHICONE 125 MG CHEW TAB PO SCH ×3 (08:48→18:16)
[2020-09-27] MEDS: SENNA/DOCUSATE TABLET PO SCH (08:49)
[2020-09-27] MEDS: POLYETHYLENE GLYCOL 17 GM PACKET PO SCH ×3 (08:49→23:34)
[2020-09-27] MEDS: FENTANYL REMOVE PATCH NOTE XX SCH (12:00)
[2020-09-27] MEDS: NICOTINE 14MG/24 HR PATCH.TD24 TD SCH (12:39)
[2020-09-27] MEDS: FENTANYL 100 MCG PATCH TD SCH (12:39)
[2020-09-28] MEDS: GABAPENTIN 300 MG CAPSULE PO PRN (01:55)
[2020-09-28] MEDS: morphine SULFATE 15 MG TAB.IR PO PRN ×6 (04:58→22:02)
[2020-09-28] MEDS: ACETAMINOPHEN 325 MG TABLET PO PRN (06:49)
[2020-09-28] MEDS: SENNA/DOCUSATE TABLET PO SCH (09:00)
[2020-09-28] MEDS: POLYETHYLENE GLYCOL 17 GM PACKET PO SCH (09:00)
[2020-09-28] MEDS: SIMETHICONE 125 MG CHEW TAB PO SCH ×3 (09:01→17:28)
[2020-09-28] MEDS: FAMOTIDINE 20 MG TABLET PO SCH ×2 (09:01→20:40)
[2020-09-28] MEDS: NICOTINE 14MG/24 HR PATCH.TD24 TD SCH (12:03)
[2020-09-28] MEDS: TEMAZEPAM 15 MG CAPSULE PO PRN (22:05)
[2020-09-29] MEDS: morphine SULFATE 15 MG TAB.IR PO PRN ×3 (03:09→12:53)
[2020-09-29 05:40] LABS: CREATININE 0.61 mg/dL (0.7-1.3)
[2020-09-29] MEDS: SENNA/DOCUSATE TABLET PO SCH (07:48)
[2020-09-29] MEDS: SIMETHICONE 125 MG CHEW TAB PO SCH ×3 (07:48→17:37)
[2020-09-29] MEDS: FAMOTIDINE 20 MG TABLET PO SCH ×2 (07:48→21:33)
[2020-09-29] MEDS: NICOTINE 14MG/24 HR PATCH.TD24 TD SCH (12:53)
[2020-09-29] MEDS: MAGNESIUM CITRATE 300ML ORAL SOL PO PRN (16:13)
[2020-09-29] MEDS: TEMAZEPAM 15 MG CAPSULE PO PRN (21:33)
[2020-09-30] MEDS: morphine SULFATE 15 MG TAB.IR PO PRN ×6 (02:34→23:34)
[2020-09-30] MEDS: SIMETHICONE 125 MG CHEW TAB PO SCH ×3 (07:42→18:12)
[2020-09-30] MEDS: FAMOTIDINE 20 MG TABLET PO SCH ×2 (07:42→20:55)
[2020-09-30] MEDS: SENNA/DOCUSATE TABLET PO SCH (07:43)
[2020-09-30] MEDS: FENTANYL 100 MCG PATCH TD SCH (11:39)
[2020-09-30] MEDS: NICOTINE 14MG/24 HR PATCH.TD24 TD SCH (11:39)
[2020-09-30] MEDS: FENTANYL REMOVE PATCH NOTE XX SCH (12:00)
[2020-09-30] MEDS: GABAPENTIN 300 MG CAPSULE PO PRN (14:23)
[2020-10-01] MEDS: TEMAZEPAM 15 MG CAPSULE PO PRN (01:52)
[2020-10-01] MEDS: morphine SULFATE 15 MG TAB.IR PO PRN ×6 (02:34→23:58)
[2020-10-01] MEDS: FAMOTIDINE 20 MG TABLET PO SCH ×2 (07:32→21:04)
[2020-10-01] MEDS: SENNA/DOCUSATE TABLET PO SCH ×2 (07:32→07:33)
[2020-10-01] MEDS: SIMETHICONE 125 MG CHEW TAB PO SCH ×3 (07:32→18:18)
[2020-10-01] MEDS: NICOTINE 14MG/24 HR PATCH.TD24 TD SCH (13:01)
[2020-10-02] MEDS: morphine SULFATE 15 MG TAB.IR PO PRN ×4 (02:54→22:19)
[2020-10-02] MEDS: TEMAZEPAM 15 MG CAPSULE PO PRN (02:57)
[2020-10-02] MEDS: SIMETHICONE 125 MG CHEW TAB PO SCH ×3 (07:31→17:39)
[2020-10-02] MEDS: FAMOTIDINE 20 MG TABLET PO SCH ×2 (08:20→20:15)
[2020-10-02] MEDS: SENNA/DOCUSATE TABLET PO SCH (08:21)
[2020-10-02] MEDS: NICOTINE 14MG/24 HR PATCH.TD24 TD SCH (11:58)
[2020-10-02] MEDS: GABAPENTIN 300 MG CAPSULE PO PRN (22:52)
[2020-10-03] MEDS: MAGNESIUM CITRATE 300ML ORAL SOL PO PRN (00:45)
[2020-10-03] MEDS: morphine SULFATE 15 MG TAB.IR PO PRN ×5 (01:54→22:52)
[2020-10-03] MEDS: SIMETHICONE 125 MG CHEW TAB PO SCH ×3 (07:50→17:30)
[2020-10-03] MEDS: SENNA/DOCUSATE TABLET PO SCH (08:35)
[2020-10-03] MEDS: FAMOTIDINE 20 MG TABLET PO SCH ×2 (08:35→20:04)
[2020-10-03] MEDS: NICOTINE 14MG/24 HR PATCH.TD24 TD SCH (11:35)
[2020-10-03] MEDS: FENTANYL 100 MCG PATCH TD SCH (11:36)
[2020-10-03] MEDS: FENTANYL REMOVE PATCH NOTE XX SCH (11:39)
[2020-10-04] MEDS: morphine SULFATE 15 MG TAB.IR PO PRN ×3 (01:57→19:05)
[2020-10-04] MEDS: TEMAZEPAM 15 MG CAPSULE PO PRN (02:01)
[2020-10-04] MEDS: SIMETHICONE 125 MG CHEW TAB PO SCH ×3 (08:53→17:04)
[2020-10-04] MEDS: FAMOTIDINE 20 MG TABLET PO SCH ×2 (08:53→21:02)
[2020-10-04] MEDS: SENNA/DOCUSATE TABLET PO SCH (08:53)
[2020-10-04] MEDS: NICOTINE 14MG/24 HR PATCH.TD24 TD SCH (12:32)
[2020-10-05] MEDS: morphine SULFATE 15 MG TAB.IR PO PRN ×4 (01:58→18:15)
[2020-10-05] MEDS: TEMAZEPAM 15 MG CAPSULE PO PRN (01:58)
[2020-10-05 05:23] LABS: CREATININE 0.62 mg/dL (0.7-1.3)
[2020-10-05] MEDS: FAMOTIDINE 20 MG TABLET PO SCH ×2 (08:54→20:54)
[2020-10-05] MEDS: SIMETHICONE 125 MG CHEW TAB PO SCH ×3 (08:54→18:14)
[2020-10-05] MEDS: SENNA/DOCUSATE TABLET PO SCH (08:54)
[2020-10-05] MEDS: NICOTINE 14MG/24 HR PATCH.TD24 TD SCH (12:04)
[2020-10-06] MEDS: morphine SULFATE 15 MG TAB.IR PO PRN ×7 (00:07→23:47)
[2020-10-06] MEDS: SIMETHICONE 125 MG CHEW TAB PO SCH ×3 (07:33→18:10)
[2020-10-06] MEDS: SENNA/DOCUSATE TABLET PO SCH (09:13)
[2020-10-06] MEDS: FAMOTIDINE 20 MG TABLET PO SCH ×2 (09:13→22:46)
[2020-10-06] MEDS: FENTANYL REMOVE PATCH NOTE XX SCH (12:39)
[2020-10-06] MEDS: FENTANYL 100 MCG PATCH TD SCH (12:39)
[2020-10-06] MEDS: NICOTINE 14MG/24 HR PATCH.TD24 TD SCH (12:40)
[2020-10-06] MEDS ORDERED: morphine SULFATE 15 MG TAB.IR PO SCH (16:00)
[2020-10-06] MEDS: TEMAZEPAM 15 MG CAPSULE PO PRN (23:46)
[2020-10-07] MEDS: morphine SULFATE 15 MG TAB.IR PO PRN ×5 (03:37→20:01)
[2020-10-07] MEDS: SENNA/DOCUSATE TABLET PO SCH (07:56)
[2020-10-07] MEDS: SIMETHICONE 125 MG CHEW TAB PO SCH ×3 (07:56→17:57)
[2020-10-07] MEDS: FAMOTIDINE 20 MG TABLET PO SCH ×2 (07:56→21:47)
[2020-10-07] MEDS: NICOTINE 14MG/24 HR PATCH.TD24 TD SCH (13:42)
[2020-10-07] MEDS: morphine SULFATE 60 MG TABLET.ER PO SCH ×2 (16:30→21:47)
[2020-10-07] MEDS: TEMAZEPAM 15 MG CAPSULE PO PRN (20:01)
[2020-10-08] MEDS: morphine SULFATE 15 MG TAB.IR PO PRN ×5 (02:35→21:31)
[2020-10-08 06:11] LABS: CREATININE 0.62 mg/dL (0.7-1.3)
[2020-10-08] MEDS: SIMETHICONE 125 MG CHEW TAB PO SCH ×3 (09:19→18:27)
[2020-10-08] MEDS: morphine SULFATE 60 MG TABLET.ER PO SCH ×3 (09:19→21:20)
[2020-10-08] MEDS: FAMOTIDINE 20 MG TABLET PO SCH ×2 (09:19→21:20)
[2020-10-08] MEDS: SENNA/DOCUSATE TABLET PO SCH (09:20)
[2020-10-08] MEDS: NICOTINE 14MG/24 HR PATCH.TD24 TD SCH (13:00)
[2020-10-08] MEDS: TEMAZEPAM 15 MG CAPSULE PO PRN (21:20)
[2020-10-09] MEDS: morphine SULFATE 15 MG TAB.IR PO PRN ×4 (01:37→22:14)
[2020-10-09] MEDS: SENNA/DOCUSATE TABLET PO SCH (09:05)
[2020-10-09] MEDS: SIMETHICONE 125 MG CHEW TAB PO SCH ×3 (09:05→18:01)
[2020-10-09] MEDS: FAMOTIDINE 20 MG TABLET PO SCH ×2 (09:06→20:54)
[2020-10-09] MEDS: morphine SULFATE 60 MG TABLET.ER PO SCH ×3 (09:06→20:54)
[2020-10-09] MEDS: FENTANYL REMOVE PATCH NOTE XX SCH (12:00)
[2020-10-09] MEDS: NICOTINE 14MG/24 HR PATCH.TD24 TD SCH (12:39)
[2020-10-09] MEDS: FENTANYL 100 MCG PATCH TD SCH (12:39)
[2020-10-09] MEDS: TEMAZEPAM 15 MG CAPSULE PO PRN (20:54)
[2020-10-10] MEDS: morphine SULFATE 15 MG TAB.IR PO PRN ×4 (03:27→23:23)
[2020-10-10] MEDS: FAMOTIDINE 20 MG TABLET PO SCH ×2 (08:28→21:28)
[2020-10-10] MEDS: morphine SULFATE 60 MG TABLET.ER PO SCH ×3 (08:28→21:28)
[2020-10-10] MEDS: SIMETHICONE 125 MG CHEW TAB PO SCH ×3 (08:28→17:43)
[2020-10-10] MEDS: SENNA/DOCUSATE TABLET PO SCH (08:29)
[2020-10-10] MEDS: NICOTINE 14MG/24 HR PATCH.TD24 TD SCH (12:10)
[2020-10-11] MEDS: morphine SULFATE 15 MG TAB.IR PO PRN ×3 (02:23→09:57)
[2020-10-11 05:39] LABS: CREATININE 0.75 mg/dL (0.7-1.3)
[2020-10-11] MEDS: SENNA/DOCUSATE TABLET PO SCH (09:00)
[2020-10-11] MEDS: FAMOTIDINE 20 MG TABLET PO SCH (09:04)
[2020-10-11] MEDS: morphine SULFATE 60 MG TABLET.ER PO SCH (09:04)
[2020-10-11] MEDS: SIMETHICONE 125 MG CHEW TAB PO SCH (09:04)
== END 2020-10-11 11:45 | disposition hospice, home (50) | DRG 947 ==
LOC: ED 13:02 → OBSVTOIN 14:54 → EDIP 14:54 → INTOOBSV 14:54 → 3N 18:08 → 4NW 08-16 10:46
PROVIDERS: ADMIT Internal Medicine; ATTEND Internal Medicine
DX: G89.3 Neoplasm related pain (acute) (chronic) (principal); E43 Unspecified severe protein-calorie malnutrition; C25.9 Malignant neoplasm of pancreas, unspecified; C78.7 Secondary malignant neoplasm of liver and intrahepatic bile duct; Z68.1 Body mass index [BMI] 19.9 or less, adult; C78.00 Secondary malignant neoplasm of unspecified lung; R64 Cachexia; F03.90 Unspecified dementia, unspecified severity, without behavioral disturbance, psychotic disturbance, mood disturbance, and anxiety; F17.210 Nicotine dependence, cigarettes, uncomplicated; J44.9 Chronic obstructive pulmonary disease, unspecified; Z51.5 Encounter for palliative care; Z88.0 Allergy status to penicillin; C61 Malignant neoplasm of prostate; M81.0 Age-related osteoporosis without current pathological fracture; Z59.0 Homelessness; Z63.8 Other specified problems related to primary support group; Z80.3 Family history of malignant neoplasm of breast; Z85.3 Personal history of malignant neoplasm of breast; Z80.1 Family history of malignant neoplasm of trachea, bronchus and lung; Z80.0 Family history of malignant neoplasm of digestive organs; Z66 Do not resuscitate; Z20.822 Contact with and (suspected) exposure to COVID-19
CPT/HCPCS: 36415; 80048; 80053; 82565; 83690; 83735; 85025; 86480; 96374; 96375; 99285; G0378; J1170; J1650; J1885; J2405; P9047; Q0162; 92523-GN; J2270; J7040; U0003